=== PATIENT | male | born 1990 | race Caucasian/White ===

== ENCOUNTER 2019-05-09 00:09 | Emergency (ER) | payer BC, SELFPAY ==
[2019-05-09 00:18] VITALS: BP 128/84; PULSE 116; RESP 16; TEMP 37.4; O2SAT 96; BMI 21.9
--- NOTE | 2019-05-09 00:28 | W.ED.SKABFB ---
HPI - Skin/Abscess/Foreign Bdy General: Chief complaint: Fever Stated complaint: L LEG INFECTION Time Seen by Provider: 05/09/19 00:17 Source: patient Mode of arrival: ambulatory Limitations: no limitations History of Present Illness: HPI narrative: Patient is a 29-year-old male who presents to ED today with complaints of an infection to his left foot that he began noticing today. Patient tells me he recently had a blister located to the webbing of his third and fourth toes that was unroofed. Patient states this morning he began noticing some redness, warmth, and tenderness to the dorsum of his foot and streaking up his leg. He reports fevers of 100.1 today. complaint: other (infection L foot) Onset (ago): hour(s) Tetanus up to date: yes Location: L foot Severity: moderate Quality: burning and aching Pain Consistency: constant Relieving factors: other (wearing a sock/shoe) Exacerbating factors: palpation Context: other (ruptured blister ) Associated symptoms: Reports fever(s); Deny chills, nausea or vomiting Treatments prior to arrival: none Review of Systems Const: Reports: fever; Denies: chills, body aches, change in appetite, change in weight, fatigue or malaise Card: Denies: chest pain, palpitations, edema, lightheadedness, syncope or pre-syncope Resp: Denies: shortness of breath GI: Denies: abdominal pain, nausea or vomiting Musc: Reports: extremity pain and redness; Denies: neck pain, back pain, extremity swelling, joint pain or joint swelling Skin/Breast: Reports: new lesion and changes in skin color Neuro: Denies: headache, numbness in extremities, weakness in extremities or changes in sensation PFS ED PFSH: Social History Smoking and tobacco status: current every day smoker Physical Exam Const: COMMON NORMALS: no apparent distress, average body habitus, oriented x3, no limitations, healthy appearing, alert and well nourished Resp: COMMON NORMALS: normal respiratory effort and clear to auscultation bilaterally AUSCULTATION: clear to auscultation bilaterally Cardio: COMMON NORMALS: regular rhythm RATE: tachycardic RHYTHM: regular rhythm Extremity: OTHER: pt has unroofed blister to webbing of 3-4 digits; skin appears hemorrhagic with a blue/purple hue just proximal to this webbing; from this area he has redness/warmth affecting the dorsum of his foot and streaking proximal to about a few inches above his ankle Neuro: COMMON NORMALS: oriented x3 SENSORIUM/ORIENTATION: Yes alert Skin: OTHER: see extremity assessment Course Vital Signs: Vital signs: Vital Signs Temperature 98.4 F 05/09/19 01:21 Pulse Rate 92 05/09/19 02:18 Respiratory Rate 16 05/09/19 02:18 Blood Pressure 109/77 05/09/19 01:21 Pulse Oximetry 96 05/09/19 02:18 MDM - Skin/Abscess/Foreign Bdy Lab Data: Labs: Lab Results 05/09/19 05/09/19 Range/Units 00:36 00:36 WBC 7.0 (4.0-10.0) 10^3/ uL RBC 4.13 (4.1-5.3) 10^6/u L Hgb 12.9 (11.7-16.6) g/dL Hct 39.8 L (42.0-52.0) % MCV 96.4 H (80-94) fL MCH 31.2 (28.0-34.0) pg MCHC 32.4 (30.0-36.0) g/dL RDW 13.4 (12.1-15.1) % Plt Count 150 (130-400) 10^3/c mm MPV 10.2 (7.4-10.4) fL Neut % (Auto) 81.8 % Lymph % (Auto) 9.8 % [place] % (Auto) 7.4 % Eos % (Auto) 0.6 % Baso % (Auto) 0.1 % Neut # (Auto) 5.8 (1.8-7.7) 10^3/u L Lymph # (Auto) 0.7 L (0.8-4.8) 10^3/u L [place] # (Auto) 0.5 (0.2-0.9) 10^3/u L Eos # (Auto) 0.0 (0.0-0.8) 10^3/u L Baso # (Auto) 0.0 (0.0-0.1) 10^3/u L Nucleated RBC % (a uto) 0 % Nucleated RBCs # 0.0 /100WBC Sodium 134 L (136-145) mmol/L Potassium 4.1 (3.5-5.1) mmol/L Chloride 96 L (98-107) mmol/L Carbon Dioxide 24 (22-29) mmol/L Anion Gap 18.1 (5-19) BUN 11 (6-20) mg/dL Creatinine 0.9 (0.7-1.2) mg/dL GFR Calculation 100.5 (90-130) mL/min Glucose 96 (65-115) mg/dL Calcium 10.0 (8.5-10.5) mg/dL Total Bilirubin 0.2 (0.15-1.2) mg/dL AST 14 (0-40) U/L ALT 17 (0-41) U/L Alkaline Phosphata se 63 (40-130) IU/L Total Protein 7.7 (6.6-8.7) g/dL Albumin 4.4 (3.5-5.2) g/dL Globulin 3.3 (1.3-4.6) g/dL Discharge Plan Discharge Patient Disposition: Home, Self-Care Clinical Impression: Acute lymphangitis of extremity Cellulitis Qualifiers: Site of cellulitis: extremity Site of cellulitis of extremity: lower extremity Laterality: left Qualified Code(s): L03.116 - Cellulitis of left lower limb Condition: Stable Prescriptions: New clindamycin HCl 300 mg capsule 300 mg PO Q6H 7 Days Qty: 28 RF: 0 No Action trazodone 50 mg Tablet 50 mg PO BEDTIME RF: 0 Klonopin 0.5 mg Tablet 0.5 mg PO TID PRN (Reason: Anxiety) RF: 0 Tegretol 200 mg Tablet 200 mg PO BEDTIME RF: 0 Discharge Orders: Discharge Order (Routine); Ordered 05/09/19 Ordered By: Brandi Hicks Referrals: Sujata Chapman MD [Primary Care Provider] - Activity Restrictions/Additional Instructions: As discussed you need to return to the emergency department for worsening redness, worsening streaking up your leg, or fevers greater than 100.4 despite antibiotic therapy. Otherwise you may follow-up with primary care this week for reevaluation. Begin antibiotics promptly tomorrow morning. Discharge Date/Time: 05/09/19 02:19 Coding Level of Care Code ED [place] Director for Chg Fwd Exam Expanded Problem Focused
[2019-05-09 00:48] LABS: Basophils % 0.1 %; Eosinophils % 0.6 %; Hematocrit 39.8 % (42.0-52.0); Hemoglobin 12.9 g/dL (11.7-16.6); Lymphocytes # 0.7 10^3/uL (0.8-4.8); Lymphocytes % 9.8 %; Mean Corpuscular HGB Conc 32.4 g/dL (30.0-36.0); Mean Corpuscular Hemoglobin 31.2 pg (28.0-34.0); Mean Corpuscular Volume 96.4 fL (80-94); Mean Platelet Volume 10.2 fL (7.4-10.4); Monocytes # 0.5 10^3/uL (0.2-0.9); Monocytes % 7.4 %; Neutrophils # 5.8 10^3/uL (1.8-7.7); Neutrophils % 81.8 %; Nucleated Red Blood Cells % 0 %; Platelet Count 150 10^3/cmm (130-400); Red Blood Count 4.13 10^6/uL (4.1-5.3); Red Cell Distribution Width 13.4 % (12.1-15.1)
[2019-05-09 01:05] LABS: Alanine Aminotransferase 17 U/L (0-41); Albumin Level 4.4 g/dL (3.5-5.2); Alkaline Phosphatase 63 IU/L (40-130); Anion Gap 18.1 (5-19); Aspartate Amino Transferase 14 U/L (0-40); Blood Urea Nitrogen 11 mg/dL (6-20); Carbon Dioxide 24 mmol/L (22-29); Chloride 96 mmol/L (98-107); Globulin 3.3 g/dL (1.3-4.6); Glomerular Filtration Rate 100.5 mL/min (90-130); Glucose 96 mg/dL (65-115); Potassium 4.1 mmol/L (3.5-5.1); Sodium 134 mmol/L (136-145); Total Bilirubin 0.2 mg/dL (0.15-1.2); Total Protein 7.7 g/dL (6.6-8.7)
[2019-05-09] MEDS: naproxen 500 mg Tablet PO (01:19)
[2019-05-09] MEDS: vancomycin 1,000 MG in sodium chloride 0.9% 250 ML 250 MG IV (01:19)
[2019-05-09 01:21] VITALS: BP 109/77; PULSE 98; RESP 16; TEMP 36.9; O2SAT 96
[2019-05-09] MEDS: HYDROcodone-acetaminophen 5-325 mg Tablet 2 TAB PO (02:00)
[2019-05-09 02:18] VITALS: PULSE 92; RESP 16; O2SAT 96
[2019-05-09 02:31] LABS: C Reactive Protein 23.4 mg/L (0.0-4.9)
== END 2019-05-09 02:19 | disposition home or self-care (01) ==
PROVIDERS: Emergency Provider Physician Assistant; PCP Family Medicine
DX: L03.126 Acute lymphangitis of left lower limb (principal); L03.116 Cellulitis of left lower limb; F17.200 Nicotine dependence, unspecified, uncomplicated
CPT/HCPCS: 36415; 80053; 85025; 86140; 87040; 87070; 87077; 87186; 87205; 96365; 96367; 99283; J3370; J7050

== ENCOUNTER → 2020-05-06 15:31 | Outpatient (BNVA) | payer MEDICARE, SELFPAY | PROVIDERS: PCP Family Medicine; Visit Provider Nurse Practitioner | DX: Z79.899 Other long term (current) drug therapy (principal) | CPT/HCPCS: 85007; 85027 ==

== ENCOUNTER → 2020-07-12 10:55 | Outpatient (BNVA) | payer MEDICARE, SELFPAY | PROVIDERS: PCP Family Medicine; Visit Provider Nurse Practitioner | DX: F31.63 Bipolar disorder, current episode mixed, severe, without psychotic features (principal); F17.210 Nicotine dependence, cigarettes, uncomplicated; Z79.899 Other long term (current) drug therapy | CPT/HCPCS: 80061; 83036; 85007; 85027; 99214 ==

== ENCOUNTER → 2020-10-11 08:54 | Outpatient (BNVA) | payer MEDICARE, SELFPAY | PROVIDERS: PCP Family Medicine; Visit Provider Nurse Practitioner | DX: F31.63 Bipolar disorder, current episode mixed, severe, without psychotic features (principal); F17.210 Nicotine dependence, cigarettes, uncomplicated; Z79.899 Other long term (current) drug therapy | CPT/HCPCS: 85007; 85027; 99214 ==

== ENCOUNTER 2020-11-29 05:48 | Emergency (ER) | payer MEDICARE, SELFPAY ==
[2020-11-29 05:58] VITALS: BP 116/79; PULSE 104; RESP 16; TEMP 36.6; O2SAT 98; BMI 23.0
--- NOTE | 2020-11-29 06:06 | W.ED.SKABFB ---
HPI - Skin/Abscess/Foreign Bdy General: Chief complaint: Skin/Abscess/Foreign Body Stated complaint: sores oozing on lower legs Time Seen by Provider: 11/29/20 05:51 History of Present Illness: HPI narrative: Mr. Amaro is a 30-year-old gentleman with significant past medical history of psychiatric disorder and tobaccoism who presents emerge department due to concern over skin lesions. Reports first noticing a skin lesion on his right anterior chin a few months ago. He is unsure if there was any specific provoking factor though is concerned that it may have been an insect bite. Since that time he has had minor approximately 5 to 10 mm ulceration that has been nonhealing with mild surrounding tenderness and erythema. He subsequently developed an additional lesion on his chest. He decided to seek medical care today because he developed a painful draining lesion which does not have ulceration on his left zabala. He denies fevers chills. He has had mild fatigue, nausea, and generalized malaise. He denies other focal sources of infection. He denies drug use. His symptoms are worse with palpating the lesions and moderate intensity discomfort with this which is aching and painful in nature. He denies similar episodes in the past. No other specific changes in health, exacerbating, or alleviating factors identified. Review of Systems General: Reports: 10 or more systems reviewed and unremarkable except in HPI and below PFSH ED PFSH: Medical History Attention-deficit hyperactivity disorder, predominantly inattentive type Bipolar disorder, current episode mixed, severe, without psychotic features care home current use of clozapine Nicotine dependence, cigarettes, uncomplicated Psychiatric care Social History Smoking and tobacco status: current every day smoker cigarettes Smoking risk assessment/counseling performed?: Yes Tobacco counseling given: counseling >3 minutes Physical Exam Narrative: EXAM NARRATIVE: GENERAL/CONSTITUTIONAL - well-appearing. No acute distress. Eyes - PERRL, no conjunctival injection ENMT - Atraumatic external nose and ears. Moist mucous membranes NECK - supple. trachea midline CARDIOVASCULAR -tachycardic rate and regular rhythm. Peripheral pulses 2+ and equal RESPIRATORY -clear to auscultation bilaterally. No retractions or accessory muscle use. ABDOMEN/GI - Nontender. Nondistended. MSK - Extremities without obvious deformity. SKIN - Warm, Dry. On the chest there is noted to be approximately 5 mm mild ulceration surrounded by erythema, a similar lesion is noted on the right zabala with approximately 5 x 3 cm area of cellulitis. The left zabala has approximately a 6 x 3 cm ovoid area of mild induration and cellulitic appearing changes, no appreciable fluid collection. No rash or vesicles. NEURO - alert and appropriately oriented. Moves all extremities equally. Course ED course: - Patient was seen and evaluated by me at bedside -Vital signs obtained - Initial evaluation notable for no acute distress, nontoxic appearance. Skin lesions as noted above, likely cellulitic though ulcerations are somewhat atypical. - Given tachycardia labs ordered to rule out additional SIRS criteria. labs notable for no leukocytosis, normal lactate. - IV fluids and IV antibiotic given. - Based on patient history, evaluation, labs, and imaging as interpreted the most likely cause of the patient's condition is cellulitis - The results of ED evaluation were given to the patient including prescriptions and/or symptomatic cares (if applicable) including appropriate and responsible use, followup plan, and return precautions. The patient verbalized understanding and felt safe for discharge. - Patient discharged in satisfactory condition. Vital Signs: Vital signs: Vital Signs Temperature 98.9 F 11/29/20 07:47 Pulse Rate 67 11/29/20 07:47 Respiratory Rate 18 11/29/20 07:47 Blood Pressure 116/79 11/29/20 05:58 Pulse Oximetry 96 11/29/20 07:47 MDM - Skin/Abscess/Foreign Bdy Medical Records: Attestation: I reviewed the patient's medical records. Lab Data: Attestation: I reviewed the patient's lab results. Labs: Lab Results 11/29/20 11/29/20 11/29/20 Range/Units 06:28 06:28 06:28 WBC 8.9 (4.0-10.0) 10^3/ uL RBC 4.21 (4.1-5.3) 10^6/u L Hgb 13.6 (11.7-16.6) g/dL Hct 41.2 L (42.0-52.0) % MCV 97.9 H (80-94) fl MCH 32.3 (28.0-34.0) pg MCHC 33.0 (30.0-36.0) g/dL RDW 13.2 (12.1-15.1) % Plt Count 196 (130-400) 10^3/c mm MPV 10.3 (7.4-10.4) fL Neut % (Auto) 62.9 % Lymph % (Auto) 31.2 % [place] % (Auto) 5.2 % Eos % (Auto) 0.1 % Baso % (Auto) 0.3 % Neut # (Auto) 5.61 (1.8-7.7) 10^3/u L Lymph # (Auto) 2.8 (0.8-4.8) 10^3/u L [place] # (Auto) 0.5 (0.2-0.9) 10^3/u L Eos # (Auto) 0.0 (0.0-0.8) 10^3/u L Baso # (Auto) 0.0 (0.0-0.1) 10^3/u L Nucleated RBC % (a uto) 0 % Nucleated RBCs # 0.0 /100WBC Sodium 139 (136-145) mmol/L Potassium 4.2 (3.5-5.1) mmol/L Chloride 101 (98-107) mmol/L Carbon Dioxide 28 (22-29) mmol/L Anion Gap 14.2 (5-19) BUN 13 (6-20) mg/dL Creatinine 0.8 (0.7-1.2) mg/dL GFR Calculation 114.3 (90-130) mL/min Glucose 63 L (65-115) mg/dL Calculated Osmolal ity 286 (285-295) mOsm/k g Lactate 0.9 (0.5-2.2) mmol/L Calcium 9.4 (8.5-10.5) mg/dL Total Bilirubin 0.3 (0.15-1.2) mg/dL AST 21 (0-40) U/L ALT 17 (0-41) U/L Alkaline Phosphata se 70 (40-130) IU/L Total Protein 6.9 (6.6-8.7) g/dL Albumin 4.6 (3.5-5.2) g/dL Globulin 2.3 (1.3-4.6) g/dL Discharge Plan Discharge Patient Disposition: Home Clinical Impression: Cellulitis Condition: Stable Prescriptions: New clindamycin HCl 150 mg capsule 450 mg PO Q8H 7 Days Qty: 63 RF: 0 No Action Klonopin 0.5 mg tablet 0.5 mg PO TID PRN (Reason: Anxiety) Qty: 90 RF: 2 Tegretol 200 mg tablet 200 mg PO BEDTIME Qty: 30 RF: 0 clozapine 50 mg tablet 50 mg PO .HS Qty: 30 RF: 0 Discharge Orders: Discharge ED (Routine); Ordered 11/29/20 Ordered By: Giovani Norman Referrals: Maria T Allen PMHNP [Primary Care Provider] - Discharge Diet: Usual diet Discharge Activity: Resume usual activity Patient Instructions: Cellulitis (ED) Activity Restrictions/Additional Instructions: Thank you for visiting the ED. You were seen and evaluated for skin lesions. Though the ulcerations are somewhat less typical of skin infection the surrounding areas appear infected. You will be given a prescription for antibiotics. Please follow-up with your primary care provider. Please complete the course of antibiotics even if your skin lesions improved. Please return to the emergency department for worsening symptoms, fevers, inability to tolerate oral intake, or anything else that you are concerned about and feel needs emergency department evaluation. 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
[2020-11-29] MEDS: sodium chloride 0.9% 1,000 ML 999 ML IV (06:25)
[2020-11-29 06:36] LABS: Basophils % 0.3 %; Eosinophils % 0.1 %; Hematocrit 41.2 % (42.0-52.0); Hemoglobin 13.6 g/dL (11.7-16.6); Lymphocytes # 2.8 10^3/uL (0.8-4.8); Lymphocytes % 31.2 %; Mean Corpuscular Hemoglobin 32.3 pg (28.0-34.0); Mean Corpuscular Volume 97.9 fl (80-94); Mean Platelet Volume 10.3 fL (7.4-10.4); Monocytes # 0.5 10^3/uL (0.2-0.9); Monocytes % 5.2 %; Neutrophils # 5.61 10^3/uL (1.8-7.7); Neutrophils % 62.9 %; Nucleated Red Blood Cells % 0 %; Platelet Count 196 10^3/cmm (130-400); Red Blood Count 4.21 10^6/uL (4.1-5.3); Red Cell Distribution Width 13.2 % (12.1-15.1); White Blood Count 8.9 10^3/uL (4.0-10.0)
[2020-11-29 06:58] LABS: Lactate (Lactic Acid level) 0.9 mmol/L (0.5-2.2)
[2020-11-29 06:59] LABS: Alanine Aminotransferase 17 U/L (0-41); Albumin Level 4.6 g/dL (3.5-5.2); Alkaline Phosphatase 70 IU/L (40-130); Anion Gap 14.2 (5-19); Aspartate Amino Transferase 21 U/L (0-40); Blood Urea Nitrogen 13 mg/dL (6-20); Calcium 9.4 mg/dL (8.5-10.5); Carbon Dioxide 28 mmol/L (22-29); Chloride 101 mmol/L (98-107); Globulin 2.3 g/dL (1.3-4.6); Glomerular Filtration Rate 114.3 mL/min (90-130); Glucose 63 mg/dL (65-115); Osmolality Calculated 286 mOsm/kg (285-295); Potassium 4.2 mmol/L (3.5-5.1); Sodium 139 mmol/L (136-145); Total Bilirubin 0.3 mg/dL (0.15-1.2); Total Protein 6.9 g/dL (6.6-8.7)
[2020-11-29] MEDS: clindamycin 600 MG/50 ML PREMIX 100 MG IV (07:00)
[2020-11-29 07:47] VITALS: PULSE 67; RESP 18; TEMP 37.2; O2SAT 96
== END 2020-11-29 07:51 | disposition home or self-care (01) ==
PROVIDERS: Emergency Provider Emergency Medicine; PCP Nurse Practitioner
DX: L03.116 Cellulitis of left lower limb (principal); L03.115 Cellulitis of right lower limb; F17.210 Nicotine dependence, cigarettes, uncomplicated
CPT/HCPCS: 80053; 83605; 85025; 96365; 99283; J3490; J7030

== ENCOUNTER 2020-11-30 10:51 | Inpatient (IN) | payer MEDICARE, SELFPAY ==
[2020-11-30 11:16] VITALS: BP 146/99; PULSE 96; RESP 18; TEMP 36.7; O2SAT 98; BMI 24.2
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
[2020-11-30] MEDS: LORazepam 2 mg/mL INJ 1 mL 1 MG IM (11:57)
[2020-11-30] MEDS: ziprasidone 20 mg/mL SDV 10 MG IM (11:58)
[2020-11-30 12:00] VITALS: BP 122/73; PULSE 74; RESP 16; O2SAT 99
[2020-11-30 12:54] LABS: Basophils % 0.3 %; Eosinophils % 0.2 %; Hematocrit 39.8 % (42.0-52.0); Hemoglobin 13.4 g/dL (11.7-16.6); Lymphocytes # 1.2 10^3/uL (0.8-4.8); Lymphocytes % 18.4 %; Mean Corpuscular HGB Conc 33.7 g/dL (30.0-36.0); Mean Corpuscular Hemoglobin 32.7 pg (28.0-34.0); Mean Corpuscular Volume 97.1 fl (80-94); Mean Platelet Volume 10.3 fL (7.4-10.4); Monocytes # 0.4 10^3/uL (0.2-0.9); Monocytes % 5.9 %; Neutrophils # 4.99 10^3/uL (1.8-7.7); Nucleated Red Blood Cells % 0 %; Platelet Count 176 10^3/cmm (130-400); Red Cell Distribution Width 13.1 % (12.1-15.1); White Blood Count 6.6 10^3/uL (4.0-10.0)
[2020-11-30 13:09] LABS: Alanine Aminotransferase 17 U/L (0-41); Albumin Level 4.5 g/dL (3.5-5.2); Alkaline Phosphatase 75 IU/L (40-130); Anion Gap 13.9 (5-19); Aspartate Amino Transferase 22 U/L (0-40); Blood Urea Nitrogen 11 mg/dL (6-20); Calcium 9.2 mg/dL (8.5-10.5); Carbamazepine Tegretol 5.5 ug/mL (4.0-12.0); Carbon Dioxide 24 mmol/L (22-29); Chloride 102 mmol/L (98-107); Glomerular Filtration Rate 133.3 mL/min (90-130); Glucose 100 mg/dL (65-115); Osmolality Calculated 281 mOsm/kg (285-295); Potassium 3.9 mmol/L (3.5-5.1); Sodium 136 mmol/L (136-145); Total Bilirubin 0.3 mg/dL (0.15-1.2); Total Protein 6.5 g/dL (6.6-8.7)
[2020-11-30 13:31] LABS: Acetaminophen < 5.0 ug/mL (10-30); Alcohol Level < 10 mg/dL (0-10); Salicylate < 0.3 mg/dL (3-10)
[2020-11-30 13:43] LABS: Amphetamines Screen Urine Positive (Negative); Barbiturates Screen Urine Negative (Negative); Benzodiazepines Screen Urine Negative (Negative); Cocaine Screen Urine Negative (Negative); Opiate Screen Urine Positive (Negative); PCP Screen Urine Negative (Negative); THC Screen Urine Negative (Negative)
--- NOTE | 2020-11-30 14:44 | PC.NURSE ---
patient continues resting well. VS trending. RR even and nonlabored.
[2020-11-30 15:29] VITALS: BP 110/66; PULSE 68; RESP 17; O2SAT 99
[2020-11-30 18:00] VITALS: BP 127/89; PULSE 73; RESP 18; O2SAT 100
--- NOTE | 2020-11-30 19:23 | ECG_ITS ---
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 Measurements Intervals [place] Rate: 69 P: 83 MN: 166 QRS: 12 QRSD: 109 T: 61 QT: 379 QTc: 408 Interpretive Statements SINUS RHYTHM WITH SINUS ARRHYTHMIA Compared to ECG 08/29/2017 13:07:52 No significant changes Electronically Signed On 12-01-2020 18:01:51 CDT by Sandra Shen M.D. [id number] f
[2020-11-30 19:29] LABS: Add Urine Microscopic? NO; Charge for UA Resulting for Rev
[2020-11-30 20:01] LABS: Bilirubin Urine Neg (Negative); Blood Urine Neg (Negative); Glucose Urine UA Norm (Normal); Ketones Urine Negative (Negative); Leukocyte Esterase Urine Negative (Negative); Nitrate Urine Negative (Negative); Protein Urine Neg (Negative); Specific Gravity, Urine 1.005 (1.005-1.030); Sulfosalicylic Acid Urine Negative (Negative); Urine Appearance Clear (CLEAR); Urine Color Yellow (Yellow); Urobilinogen Urine Norm (Negative); pH Urine 8 (5-7)
[2020-11-30 20:16] LABS: SARS Covid-2 Antigen Negative (Negative)
[2020-11-30] MEDS: nicotine 21 mg Patch 1 PATCH TRANSDERMA (21:05)
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
[2020-11-30] MEDS: CLONazepam 0.5 mg Tablet PO (21:30)
[2020-11-30] MEDS: ziprasidone 20 mg/mL SDV IM (23:53)
[2020-12-01] MEDS: ibuprofen 200 mg Tablet 400 MG PO (00:17)
[2020-12-01] MEDS: clindamycin 150 mg Capsule 450 MG PO (00:17)
--- NOTE | 2020-12-01 06:47 | XRR_ITS ---
PROCEDURE INFORMATION: Exam: XR Left Foot Exam date and time: 12/01/2020 6:47 AM Age: 30 years old Clinical indication: Pain; Foot; Left; Additional info: Foot pain, midfoot 1st and 2nd metatarsal region TECHNIQUE: Imaging protocol: XR Left foot. Views: 1 or 2 views. COMPARISON: No relevant prior studies available. FINDINGS: Bones/joints: Normal. Soft tissues: Normal. XR/XR foot LT 2V [id number] IMPRESSION: No acute findings.
[2020-12-01] MEDS: acetaminophen 325 mg Tablet 650 MG PO ×2 (06:57→21:03)
[2020-12-01] MEDS: CLONazepam 1 mg Tablet 0.5 MG PO (07:04)
[2020-12-01 07:23] VITALS: BP 126/82; PULSE 69; RESP 18; TEMP 36.4; O2SAT 100
[2020-12-01] MEDS: cloZAPine 25 mg Tablet 50 MG PO ×2 (14:41→21:03)
[2020-12-01 15:15] VITALS: BP 114/75; PULSE 122; RESP 18; TEMP 36.8; O2SAT 97
[2020-12-01 15:25] VITALS: BP 114/75; PULSE 122; RESP 17; TEMP 36.8; O2SAT 97
[2020-12-01 15:45] VITALS: BP 114/75; PULSE 122; RESP 17; TEMP 36.8; O2SAT 97
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
[2020-12-01] MEDS: nicotine 2 mg Gum BUCCAL ×2 (20:14→22:10)
[2020-12-01 21:12] VITALS: BP 96/60; PULSE 108; RESP 15; TEMP 37.3; O2SAT 100
[2020-12-01] MEDS: hyDROXYzine 25 mg Capsule 50 MG PO (22:12)
[2020-12-01] MEDS: trazodone 50 mg Tablet PO (22:13)
--- NOTE | 2020-12-01 22:15 | PC.NURSE ---
pt requested something to help me sleep. i can't get my brain to shut down. usually my clozapine puts me right to sleep. i don't know why it's not working. trazodone 50mg po for sleep and vistaril 50mg po for anxiety given.
--- NOTE | 2020-12-02 00:36 | PC.NURSE ---
pt resting quietly at this time with both eyes closed.
[2020-12-02 06:00] VITALS: BP 95/60; PULSE 96; RESP 18; TEMP 36.8; O2SAT 100
[2020-12-02] MEDS: cloZAPine 25 mg Tablet 50 MG PO ×2 (08:18→19:38)
[2020-12-02] MEDS: nicotine 2 mg Gum BUCCAL ×5 (08:32→19:40)
--- NOTE | 2020-12-02 10:43 | P.HP_ITS ---
Providers/Chief Complaint Admitting Physician: Joshua Rutledge MD Primary Care Provider: [facility] T [facility] Chief Complaint: HI HPI NPU History of Present Illness Yeison Amaro is a 30 year old male who presented to the emergency department with the following report: Chief Complaint: Psychiatric Symptoms Stated Complaint: HI Time Seen by Provider: 11/30/20 10:52 Source: patient and family (father) Mode of arrival: ambulatory Limitations: no limitations History of Present Illness: HPI Narrative: Patient is a 30-year-old male who presents to ED today stating that his father brought him here for evaluation of skin lesions. Patient states he may have been bitten by spiders approximately a month ago. He thinks they may have become secondarily infected with staph. Patient tells me he has had received antibiotics for these but they have not seem to help. Father (outside of the room) tells me a different story of why he brought his son. He states over the past several days he has become increasingly paranoid. He has a history of schizoaffective disorder. Affidavit filled out by the father states that patient believes his brother is trying to kill him and that he needs to kill his brother in order to be safe. He also believes last night that his brother was pumping CO2 through the HVAC system. He states this morning he locked himself in his father in the bathroom and took everything out from underneath the sink and crawled under it to hide. Patient has been making statements about manufacturing a bomb. He has made several statements of not wanting to live anymore. Onset (ago): day(s) History of same: Yes Associated symptoms: Deny auditory hallucinations, visual hallucinations, depression, homicidal ideation or suicidal ideation Treatments prior to arrival: none and other (father filing out affidavit ). He was admitted to the neuropsychiatric unit for definitive treatment of those issues. He presents today having been in the emergency department for almost a day and a half of 1 on 2 days and we tried about 30 referrals without any luck. We attempt to send him to another facility is related to this facility being understaffed and his father being a primary nurse overnight on the unit. He presents today reporting that he has been not taking his medication as prescribed and also has in fact been using drugs. He reports that this behavior started after his mother went on a vacation and he was unable stay at her house and he had to go to his father's house to stay he reports. He reports that they are he is confronted by the stressors of his brother and his brothers mental health challenges which can be frightening to him. Additionally his brother is a bad influence and his addiction which he reports has been mostly well managed and has now gotten out of sorts again. We discussed his Clozaril and how the do se is so low. He reports that they have tried him on higher doses but it just makes him too tired. We did review his medications and he reports that they are in fact effective when he takes them. We discussed the risk-benefit alternatives of possibly making changes in medication and he understood and agreed proceed as documented in his note. His current desire is to maintain his current medications but be adherent with them. An excerpt of his last known hospitalization here in 2017 is included below for context. He denies any substantive changes since that time. He reports he lives with his mother primarily and is able to manage himself well in that environment. He does endorse an ongoing history with opiates and some other drugs. His UDS was positive for amphetamines as well as opiates and for that reason we discussed the likely impact of methamphetamine on psychosis and the paranoia that he is experiencing at least that reported by his father. Per his 08/11/2017 [facility] inpatient psychiatric evaluation: Date of Service: August 11, 2017 Chief Complaint: Agitation, soledad HPI: Mr. Amaro is a 27 yo male who was brought to [facility] ED after an agitated dispute in the parking lot outside the [facility] neurology clinic. His father is a nurse in the neurology clinic where the pt was apparently exhibiting increased agitated behavior, paranoia, and combativeness. He was brought into the emergency room where physical/restraints were required. A 96 hour hold was filed. The patient was noted to be exhibiting significant manic behavior. Patient had a recent history of insomnia for several days, hyper mood, racing thoughts, pressured speech, distractibility. Alcohol and drug screens were negative. Since admission, the patient has been confused and wandering, disorganized. He received additional B-52 this morning for severe agitation and later this afternoon began exhibiting dystonia of the tongue with significant dysarthria and full-body tremors. This provider arrived for interview and was notified that nursing staff had just given him 1 mg of Cogentin approximately 15 minutes prior for EPS. Patient was noted to have ongoing symptoms and 50 mg Benadryl IM stat was ordered. Within another 15 minutes, the patient was able to converse better but somewhat drowsy and dozing off during interview. He appears to have some intellectual disability versus gross disorganization. He does endorse that he came to the hospital because he was agitated. He is difficult to follow during interview and an unreliable historian. He reports that he see ex- girlfriend dressed up and wanted to take her back home with him. He initially reports that she had a baby and he was wanting to abduct the child from her but then later reported that she is currently and it is his baby. Initially reports that he has been sleeping and eating well but later reports that he was up for days. He has been irritable at times, anxious, agitated. He denies any auditory hallucinations. He reports that he has been seeing things other people haven't but cannot describe this. He has been somewhat paranoid. When asked about depression, he does report that he has been having suicidal thoughts with a plan to shoot himself in the head and does have access to 2 guns. He states my anxiety is bad when I use to much speed. Otherwise unable to obtain any additional psychiatric review of systems. Past Medical History Past Medical History: PAST PSYCHIATRIC HISTORY: Unable to obtain due to current mental status. Extensive [employer] history indicates he has had a couple of Klonopin 2 mg prescriptions in February 2017. There is an allergy to Cymbalta listed. Per records: Previous diagnosis of depression versus bipolar disorder, ADHD, and a history of opioid/cannabis abuse. -most recent outpatient mental health care at [facility]. Last progress note from May 2016 reviewed during which time the patient was on Remeron and Vyvanse and requesting a narcotic sedative prescription when he was not provided. He did not follow-up thereafter. Patient has a prior overnight admission in May 2017 for paranoia and manic behavior and the context of acute cannabis abuse. PAST FAMILY PSYCHIATRIC HISTORY: -Unable to obtain currently due to patient's mental status. SOCIAL HISTORY: Patient is single and reports living either with his mother or father at times. He does endorse using methamphetamines but denies alcohol use. Otherwise unable to obtain currently due to patient's mental status. 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 Otherwise unable to obtain due to patient's current mental status. When asked about any history of seizures, he reports that he has had a history of seizures while I was in [place]. Review of Systems Constitutional: Denies fever Eyes: Blindness right eye ENT/Mouth: Denies hearing loss Cardiovascular: Denies chest pain Respiratory: Denies shortness of breath GI: Denies vomiting/abdominal pain Neuro: Complains of: Dystonia Musculoskeletal: Complains of: Myalgias Skin: Denies lesions Hematologic/Lymphatic: No abnormal bleeding Endocrine: Denies cold intolerance : Denies dysuria Psych: Complains of: Anxiety, Other (insomnia), suicidal ideation, depression, memory problems, psychosis, anger problems Otherwise denies 12 point review systems Allergies: Coded Allergies: CODEINE (Verified Allergy, Unknown, 08/10/17) DULOXETINE (Verified Allergy, Unknown, 08/10/17) TRAMADOL (Verified Allergy, Unknown, 08/10/17) Meds NPU Home Medications Medication Instructions Recorded Confirmed Last Taken Type clonazepam 0.5 mg tablet 0.5 mg PO TID PRN #90 tab 11/06/20 11/30/20 Unknown Rx carbamazepine 200 mg tablet 200 mg PO BEDTIME #30 tab 11/20/20 11/30/20 11/29/20 Rx clindamycin HCl 450 mg PO Q8H 7 Days #63 cap 11/29/20 11/30/20 11/30/20 Rx clozapine 50 mg PO BEDTIME 11/30/20 11/30/20 11/29/20 History trazodone 50 mg PO DAILY PRN 11/30/20 11/30/20 Unknown History Allergies Allergy/AdvReac Type Severity Reaction Status Date / Time chlorpromazine Allergy Unknown Verified 11/29/20 06:05 [From Thorazine] codeine Allergy Unknown Verified 11/29/20 06:05 haloperidol [From Haldol] Allergy Unknown Verified 11/29/20 06:05 quetiapine [From Seroquel] Allergy Unknown Verified 11/29/20 06:05 PFSH NPU PFSH: Medical History Attention-deficit hyperactivity disorder, predominantly inattentive type Bipolar disorder, current episode mixed, severe, without psychotic features 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 Right eye has a whiteness noted where his eye should be and he has a prosthetic but he is not currently wearing. No abnormal movements except for psychomotor retardation. Mostly cooperative with exam in mild distress. Speech was decreased rate and volume. Mood described as better than I got here, affect slightly subdued. Thought process organized. Thought content: Patient denied suicidal or homicidal ideation, he reported some paranoia and he did appear guarded and with some persecutory and paranoid delusions, he denied auditory or visual hallucinations but did report having some prior to admission. Attention and concentration appeared intact and memory was mostly reliable but never formally tested. He is alert and oriented x3. Insight and judgment appear fair impulse control is limited. Vitals/I&O/Wt Last Vital Signs Temp 98.2 F 12/02/20 06:00 Pulse 96 12/02/20 06:00 Resp 18 12/02/20 06:00 BP 95/60 12/02/20 06:00 Pulse Ox 100 12/02/20 06:00 Data NPU : 11/30/20 12:40 11/30/20 12:40 A&P Assessment and plan (1) Cellulitis: Status: Acute (2) Schizoaffective disorder: Status: Acute Qualifiers: Schizoaffective disorder type: unspecified Qualified Code(s): F25.9 - Schizoaffective disorder, unspecified (3) Paranoia: Status: Acute (4) FDC current use of clozapine: Status: Acute (5) Nicotine dependence, cigarettes, uncomplicated: Status: Acute (6) Methamphetamine addiction: Status: Acute (7) Opiate addiction: Status: Acute Additional A&P Information This 70-year-old white male with a long history of mental health and addiction issues who presents with active addiction with a positive UDS who presented to the emergency department with active psychosis not taking medication as prescribed but open to resuming medication. 1. Continue current medication. 2. Continue every 15 minute checks for safety. 3. Encourage individual, group and milieu therapies. 4. Encourage sober living treatment after discharge at the highest level of care to which he is willing to commit. Involuntary Hold Information 96 Hour Hold: 96 Hour Involuntary Admission: Yes 96 Hour Hold Ending Date: 12/06/20 96 Hour Hold Ending Time: 12:01 Attestations NPU Medical Necessity Statement*: Inpatient hospitalization is medically necessary and the clinically appropriate intervention at this time. We will monitor medications and make changes as indicated. Patient will be in the hospital for over two midnights. Likely length of stay 3 to 5 days. 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
[2020-12-02] MEDS: acetaminophen 325 mg Tablet 650 MG PO ×2 (11:49→18:57)
[2020-12-02 14:00] VITALS: BP 114/69; PULSE 91; RESP 17; TEMP 36.8; O2SAT 99
--- NOTE | 2020-12-02 14:29 | PC.RESP ---
SMOKING CESSATION INFORMATION SENT TO PATIENT.
[2020-12-02] MEDS: hyDROXYzine 25 mg Capsule 50 MG PO ×3 (14:35→19:38)
--- NOTE | 2020-12-02 14:35 | PC.NURSE ---
PRN VISTARIL 50 MG GIVEN PO PER PT C/O STATED ANXIETY
[2020-12-02] MEDS: trazodone 50 mg Tablet PO (19:38)
[2020-12-02 20:54] VITALS: BP 106/66; PULSE 127; RESP 18; TEMP 36.7; O2SAT 97
[2020-12-03 06:00] VITALS: BP 116/71; PULSE 102; RESP 17; TEMP 36.3; O2SAT 100
[2020-12-03] MEDS: nicotine 2 mg Gum BUCCAL ×5 (06:04→19:10)
[2020-12-03] MEDS: ibuprofen 600 mg Tablet PO ×2 (06:04→19:09)
[2020-12-03] MEDS: cloZAPine 25 mg Tablet 50 MG PO ×2 (09:24→19:39)
[2020-12-03] MEDS: acetaminophen 325 mg Tablet 650 MG PO ×2 (09:24→15:48)
--- NOTE | 2020-12-03 12:34 | NPU.GN ---
[facility] Topic:Coping Skills General Mood of Group:Refused group.
[2020-12-03 14:00] VITALS: BP 117/81; PULSE 110; RESP 20; TEMP 36; O2SAT 100
--- NOTE | 2020-12-03 17:58 | PM.NPN ---
Subjective NPU Subjective: Interval history: Patient presents today reporting that he is feeling generally better and back thinking like himself he feels. Treatment team connected with his father and he is supportive of him returning home and appropriate with appropriate resources and treatment as indicated. We discussed the plan for discharge tomorrow and he felt confident that he would be able to go home now he is back on his medication and conduct himself in a way that will portend success moving forward. Mental Status Exam MSE Comments: This is a well-nourished well-developed white male in hospital scrubs with limited grooming and eye contact. Right eye has a whiteness noted where his eye should be and he has a prosthetic but he is not currently wearing. No abnormal movements except for psychomotor retardation. Mostly cooperative with exam in mild distress. Speech was decreased rate and volume. Mood described as better than I got here, affect slightly subdued. Thought process organized. Thought content: Patient denied suicidal or homicidal ideation, he reported some paranoia and he did appear guarded and with some persecutory and paranoid delusions, he denied auditory or visual hallucinations but did report having some prior to admission. Attention and concentration appeared intact and memory was mostly reliable but never formally tested. He is alert and oriented x3. Insight and judgment appear fair impulse control is limited. 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 1. Continue current medication. 2. Continue every 15 minute checks for safety. 3. Encourage individual, group and milieu therapies. 4. Encourage sober living treatment after discharge at the highest level of care to which he is willing to commit. Involuntary Hold Information 96 Hour Hold: 96 Hour Involuntary Admission: Yes 96 Hour Hold Ending Date: 12/06/20 96 Hour Hold Ending Time: 12:01 Attestations NPU Medical Necessity Statement*: Inpatient hospitalization is medically necessary and the clinically appropriate intervention at this time. We will monitor medications and make changes as indicated. Likely length of stay 1-3 days. 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
[2020-12-03] MEDS: hyDROXYzine 25 mg Capsule 50 MG PO (18:01)
--- NOTE | 2020-12-03 18:02 | PC.NURSE ---
PRN VISTARIL 50 MG GIVEN PO PER PT C/O STATED ANXIETY
[2020-12-03 20:06] VITALS: BP 120/74; PULSE 95; RESP 15; TEMP 37.1; O2SAT 98
[2020-12-04] MEDS: ibuprofen 600 mg Tablet PO (03:41)
[2020-12-04 06:00] VITALS: BP 113/76; PULSE 72; RESP 18; TEMP 36.6; O2SAT 100
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
[2020-12-04] MEDS: nicotine 2 mg Gum BUCCAL ×2 (07:47→09:34)
--- NOTE | 2020-12-04 08:41 | PC.SOCIAL ---
IMM Update Discussed medicare rights with patient. Verbalized understanding. Provided patient with a copy and placed a initialed, timed, dated copy in chart.
[2020-12-04 08:48] VITALS: BP 113/76; PULSE 72; RESP 18; TEMP 36.6; O2SAT 100
[2020-12-04] MEDS: cloZAPine 25 mg Tablet 50 MG PO (09:34)
== END 2020-12-04 09:57 | disposition home or self-care (01) | DRG 885 ==
LOC: ER 12-01 06:00 → NP 12-01 14:54
PROVIDERS: Emergency Medicine; Physician Assistant; Admitting Provider Psychiatry & Neurology Psychiatry; Emergency Provider Emergency Medicine; PCP Nurse Practitioner; Visit Provider Psychiatry & Neurology Psychiatry
DX: F25.0 Schizoaffective disorder, bipolar type (principal); L03.116 Cellulitis of left lower limb; F90.0 Attention-deficit hyperactivity disorder, predominantly inattentive type; Z79.899 Other long term (current) drug therapy; R45.850 Homicidal ideations; F17.210 Nicotine dependence, cigarettes, uncomplicated; F15.90 Other stimulant use, unspecified, uncomplicated; F11.90 Opioid use, unspecified, uncomplicated; M25.572 Pain in left ankle and joints of left foot
CPT/HCPCS: 73620; 80053; 80156; 80306; 80307; 81003; 83605; 85025; 87426; 93005; 96365; 96372; 97165; 99283; 99285; J2060; J3486; J3490; J7030

== ENCOUNTER → 2021-02-25 13:57 | Outpatient (BNVA) | payer MEDICARE, SELFPAY | PROVIDERS: PCP Nurse Practitioner; Visit Provider Nurse Practitioner | DX: Z79.899 Other long term (current) drug therapy (principal) | CPT/HCPCS: 80053; 85025 ==

== ENCOUNTER 2021-02-26 07:35 | Emergency (ER) | payer MEDICARE, SELFPAY ==
[2021-02-26 07:41] VITALS: BP 147/119; PULSE 97; RESP 18; TEMP 36.8; O2SAT 95; BMI 25.0
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
[2021-02-26 08:04] VITALS: BP 147/119; PULSE 97; RESP 18; O2SAT 95
[2021-02-26] MEDS: diphenhydrAMINE 50 mg/mL SDV 1mL IM (08:04)
== END 2021-02-26 09:12 | disposition home or self-care (01) ==
PROVIDERS: Emergency Provider Physician Assistant; PCP Nurse Practitioner
DX: T78.40XA Allergy, unspecified, initial encounter (principal); F17.210 Nicotine dependence, cigarettes, uncomplicated
CPT/HCPCS: 96372; 99214; 99283; J1200; J2930

== ENCOUNTER → 2021-04-21 11:01 | Outpatient (BNVA) | payer MEDICARE, SELFPAY | PROVIDERS: PCP Nurse Practitioner; Visit Provider Nurse Practitioner | DX: F31.63 Bipolar disorder, current episode mixed, severe, without psychotic features (principal); F17.210 Nicotine dependence, cigarettes, uncomplicated; F15.20 Other stimulant dependence, uncomplicated; Z79.899 Other long term (current) drug therapy | CPT/HCPCS: 85007; 85027; 99214 ==

== ENCOUNTER 2021-06-25 20:04 | Inpatient (IN) | payer MEDICARE, MEDICAID, SELFPAY ==
[2021-06-25 20:16] VITALS: BP 167/104; PULSE 92; RESP 18; TEMP 37.3; O2SAT 100; BMI 23.5
--- NOTE | 2021-06-25 20:57 | XRR_ITS ---
PROCEDURE INFORMATION: Exam: XR Right Tibia and Fibula Exam date and time: 06/25/2021 9:04 PM Age: 31 years old Clinical indication: Pain; Lower leg; Right TECHNIQUE: Imaging protocol: XR Right tibia and fibula. Views: 2 views. COMPARISON: No relevant prior studies available. FINDINGS: Bones/joints: There is no acute fracture or dislocation. If symptoms persist, follow-up imaging in several days may be useful to exclude an occult fracture. No other significant acute bone or joint abnormality. Soft tissues: No significant acute finding. XR/XR tibia fibula RT 2V [id number] IMPRESSION: No acute fracture or dislocation.
--- NOTE | 2021-06-25 20:57 | XRR_ITS ---
PROCEDURE INFORMATION: Exam: XR Right Foot Exam date and time: 06/25/2021 9:04 PM Age: 31 years old Clinical indication: Pain; Foot; Right; Additional info: Foot pain TECHNIQUE: Imaging protocol: XR Right foot. Views: 1 or 2 views. COMPARISON: No relevant prior studies available. FINDINGS: Bones/joints: There is no acute fracture or dislocation. If symptoms persist, follow-up imaging in several days may be useful to exclude an occult fracture. No other significant acute bone or joint abnormality. Soft tissues: No significant acute finding. XR/XR foot RT 2V 00882 IMPRESSION: No acute fracture or dislocation.
--- NOTE | 2021-06-25 20:57 | XRR_ITS ---
PROCEDURE INFORMATION: Exam: XR Right Ankle Exam date and time: 06/25/2021 9:04 PM Age: 31 years old Clinical indication: Pain; Ankle; Right; Additional info: Ankle pain TECHNIQUE: Imaging protocol: XR Right ankle. Views: 1 or 2 views. COMPARISON: No relevant prior studies available. FINDINGS: Bones/joints: There is no acute fracture or dislocation. If symptoms persist, follow-up imaging in several days may be useful to exclude an occult fracture. No other significant acute bone or joint abnormality. Soft tissues: No significant acute finding. XR/XR ankle RT 2V 08669 IMPRESSION: No acute fracture or dislocation.
--- NOTE | 2021-06-25 20:57 | USR_ITS ---
PROCEDURE INFORMATION: Exam: US Duplex Right Lower Extremity Veins, Limited Exam date and time: 06/25/2021 10:32 PM Age: 31 years old Clinical indication: Swelling (edema) of limb and varicose veins of lower extremities; Lower extremity, right; Additional info: Evalu for dvt, also look for dp/pt TECHNIQUE: Imaging protocol: Real-time Duplex ultrasound of the Right Lower Extremity with 2-D kirk scale, color Doppler flow and spectral waveform analysis with image documentation. Limited exam was focused on the right lower extremity veins. COMPARISON: CR (LOW EXM, ) 06/25/2021 9:04 PM FINDINGS: Evaluated veins include the the right common femoral, proximal profunda femoral, proximal/mid/distal superficial femoral, popliteal, posterior tibial, peroneal, and proximal greater saphenous veins. No visible clot in the included veins. The included veins appear normally compressible. Duplex Doppler evaluation demonstrates flow in the evaluated veins. US/[place] [id number] IMPRESSION: No evidence of acute right lower extremity DVT.
--- NOTE | 2021-06-25 21:03 | ED_ITS ---
Documented by User: Brnady Joyner MD 06/25/21 22:18 HPI - General Adult General: Chief complaint: Psychiatric Symptoms Stated complaint: SI\PTSD\Rt Knee Pain Time Seen by Provider: 06/25/21 20:46 History of Present Illness: HPI: [31]yo patient w/ hx of depression BIBA for suicidal ideation and self harm. Patient reports that he has burned his arms in the last few weeks and attempt to self-harm. It is, patient reports right leg pain is new x 1 week. On arrival, the patient is AAOx3 and cooperative with my evaluation. No focal complaints of chest pain, shortness of breath, palpitations, N/V, focal GI/ complaints. Currently denies HI. No complaints of hallucinations. Onset: acute Duration: ongoing Location: home Severity: severe Associated symptoms: Deny chest pain, dyspnea, nausea, rash, palpitations or vomiting Review of Systems Const: Denies: fever(s) or chills Eyes: Denies: change in vision ENMT: Denies: mouth pain Card: Denies: chest pain or palpitations Resp: Denies: dyspnea or non-productive cough GI: Denies: abdominal pain, nausea, vomiting or diarrhea : Denies: dysuria Musc: Reports: extremity pain (+R leg pain) Skin/Breast: Denies: rash or new lesions Neuro: Denies: weakness in extremities Psych: Reports: depression and suicidal ideation [place]/Lymph: Denies: easy bruising [facility] ED PFSH: Medical History Attention-deficit hyperactivity disorder, predominantly inattentive type Bipolar disorder, current episode mixed, severe, without psychotic features [facility] current use of clozapine Nicotine dependence, cigarettes, uncomplicated On combination antipsychotic drug therapy Opioid dependence, uncomplicated Other stimulant dependence, uncomplicated Psychiatric care Social History Smoking and tobacco status: current every day smoker cigarettes Packs smoked per day: 0.25 Years cigarettes smoked: 10 Quit status (tobacco): not considering quitting Second hand smoke exposure: Yes Smoking risk assessment/counseling performed?: Yes Tobacco counseling given: counseling >3 minutes Physical Exam Const: COMMON NORMALS: alert HENMT: COMMON NORMALS: atraumatic HEAD & SCALP: atraumatic MOUTH: moist mucous membranes not abnormal Eye: COMMON NORMALS: EOMs intact bilaterally and conjunctivae normal CONJUNCTIVA: Yes conjunctivae normal Neck/C-Spine: COMMON NORMALS: full ROM and supple Resp: COMMON NORMALS: normal respiratory effort and clear to auscultation bilaterally AUSCULTATION: clear to auscultation bilaterally Cardio: COMMON NORMALS: regular rate RATE: regular rate GI: COMMON NORMALS: Soft to palpation and non-tender PALPATION: Yes Soft to palpation Extremity: COMMON NORMALS: full ROM OTHER: + Sensations intact in the right lower extremity, cap refill less than 3 seconds, 2+ DP/PT pulses on the affected side, strength intact in the right lower extremity Neuro: SENSORIUM/ORIENTATION: Yes alert MOTOR EXAM: No Abnormal motor strength present and Other motor observations present (no focal motor deficits) Psych: COMMON NORMALS: speech normal SPEECH: Yes normal speech MOOD & AFFECT: Yes depressed mood Course Vital Signs: Vital signs: Vital Signs Temperature 98.9 F 06/26/21 02:00 Pulse Rate 87 06/26/21 02:00 Respiratory Rate 18 06/26/21 02:00 Blood Pressure 127/69 06/26/21 02:00 Pulse Oximetry 100 06/26/21 02:00 MDM - General Adult Medical Decision Making [31]yo patient w/ hx of depression presenting for SI and self harm. HDS, exam within normal limit Thoughts are linear and organized, and the patient has no AH/VH, or HI. Clinically the patient displays no overt toxidrome; they are well appearing, with low suspicion for toxic ingestion given history and exam. Symptoms unlikely 2/2 anemia, hypothyroidism, infection, or ICH. Workup: CBC, CMP, Lipase, salicylate/tylenol, UDS, XR of the RLE and US of the RLE X-rays of the right lower extremity did not show any signs of trauma or injuries. Ultrasound not show any signs of DVT. DP/PT pulses visualized in the right lower extremity. Lab findings: wnl [10:15pm] On reassessment, labs and workup wnl. Patient is hemodynamically stable with no acute medical complaints. Case discussed with psychiatric provider Dr. Mckenzie at [facility] psych inpatient with recommendation for transfer to outside facility since patient has family members who work in NPU. Disposition: Transfer Lab Data : 06/25/21 21:16 06/25/21 21:16 Radiology Impressions Ankle X-Ray 06/25/21 20:57 IMPRESSION: No acute fracture or dislocation. Foot X-Ray 06/25/21 20:57 IMPRESSION: No acute fracture or dislocation. Tibia/Fibula X-Ray 06/25/21 20:57 IMPRESSION: No acute fracture or dislocation. Venous Duplex 06/25/21 20:57 IMPRESSION: No evidence of acute right lower extremity DVT. Imaging Data Other Imaging: Radiologist's impression: [place] [address] XRay Report Signed Patient: Yeison Amaro Unit #: [id number] : 1990 Age/Sex: 31 / M ADM Date: 06/25/21 Loc: ER Room/Bed: Attending Dr: Ordering Provider/Ordering MD: Brandy Joyner MD Date of Service: 06/25/21 Procedure(s): XR tibia fibula RT 2V 44775 Accession Number(s): [id number] Report Number: [id number] PROCEDURE INFORMATION: Exam: XR Right Tibia and Fibula Exam date and time: 06/25/2021 9:04 PM Age: 31 years old Clinical indication: Pain; Lower leg; Right TECHNIQUE: Imaging protocol: XR Right tibia and fibula. Views: 2 views. COMPARISON: No relevant prior studies available. FINDINGS: Bones/joints: There is no acute fracture or dislocation. If symptoms persist, follow-up imaging in several days may be useful to exclude an occult fracture. ?No other significant acute bone or joint abnormality. Soft tissues: No significant acute finding.? XR/XR tibia fibula RT 2V 22677 IMPRESSION: No acute fracture or dislocation. ? Dictated By: Jean Carlos De La O MD Signed By: Jean Carlos De La O MD Signed Date/Time: 06/25/216 DD/ [address] [address] XRay Report Signed Patient: Yeison Amaro Unit #: [id number] : 1990 Age/Sex: 31 / M ADM Date: 06/25/21 Loc: ER Room/Bed: Attending Dr: Ordering Provider/Ordering MD: Brandy Joyner MD Date of Service: 06/25/21 Procedure(s): XR foot RT 2V 45376 Accession Number(s): [id number] Report Number: [id number] PROCEDURE INFORMATION: Exam: XR Right Foot Exam date and time: 06/25/2021 9:04 PM Age: 31 years old Clinical indication: Pain; Foot; Right; Additional info: Foot pain TECHNIQUE: Imaging protocol: XR Right foot. Views: 1 or 2 views. COMPARISON: No relevant prior studies available. FINDINGS: Bones/joints: There is no acute fracture or dislocation. If symptoms persist, follow-up imaging in several days may be useful to exclude an occult fracture. ?No other significant acute bone or joint abnormality. Soft tissues: No significant acute finding. XR/XR foot RT 2V 94371 IMPRESSION: No acute fracture or dislocation. ? Dictated By: Jean Carlos De La O MD Signed By: Jean Carlos De La O MD Signed Date/Time: 06/25/212216 DD/ [address] [address] XRay Report Signed Patient: Yeison Amaro Unit #: [id number] : 1990 Age/Sex: 31 / M ADM Date: 06/25/21 Loc: ER Room/Bed: Attending Dr: Ordering Provider/Ordering MD: Brandy Joyner MD Date of Service: 06/25/21 Procedure(s): XR ankle RT 2V 83344 Accession Number(s): [id number] Report Number: [id number] PROCEDURE INFORMATION: Exam: XR Right Ankle Exam date and time: 06/25/2021 9:04 PM Age: 31 years old Clinical indication: Pain; Ankle; Right; Additional info: Ankle pain TECHNIQUE: Imaging protocol: XR Right ankle. Views: 1 or 2 views. COMPARISON: No relevant prior studies available. FINDINGS: Bones/joints: There is no acute fracture or dislocation. If symptoms persist, follow-up imaging in several days may be useful to exclude an occult fracture. ?No other significant acute bone or joint abnormality. Soft tissues: No significant acute finding.? XR/XR ankle RT 2V 94710 IMPRESSION: No acute fracture or dislocation. ? Dictated By: Jean Carlos De La O MD Signed By: Jean Carlos De La O MD Signed Date/Time: 06/25/212216 DD/ [address] [address] XRay Report Signed Patient: Yeison Amaro Unit #: [id number] : 1990 Age/Sex: 30 / M ADM Date: 11/30/20 Loc: ER Room/Bed: Attending Dr: Ordering Provider/Ordering MD: Giovani Norman MD Date of Service: 12/01/20 Procedure(s): XR foot LT 2V 78285 Accession Number(s): [id number] Report Number: [id number] PROCEDURE INFORMATION: Exam: XR Left Foot Exam date and time: 12/01/2020 6:47 AM Age: 30 years old Clinical indication: Pain; Foot; Left; Additional info: Foot pain, midfoot 1st and 2nd metatarsal region TECHNIQUE: Imaging protocol: XR Left foot. Views: 1 or 2 views. COMPARISON: No relevant prior studies available. FINDINGS: Bones/joints: Normal. Soft tissues: Normal. XR/XR foot LT 2V 05192 IMPRESSION: No acute findings. ? Dictated By: Cem Serrano Signed By: Cem Serrano Signed Date/Time: 12/01/20818 DD/ 6 Discharge Plan Discharge Patient Disposition: Admitted As Inpatient Admit Provider: Phillip Mckenzie Clinical Impression: Depression, Leg pain, Acute psychosis Condition: Stable Sign Out Sign Out Data: Patient Sign Out occurred on 06/25/21 at 22:58. Patient's care was discussed, a nd care was transferred from to Giovani Norman MD. Post-Handoff Eval: Patient care handoff received from Dr. Joyner pending completion of ED evaluation and searching for accepting outside facility. Laboratory studies were reviewed. Based on ED evaluation to this point there is no obvious condition that would preclude the patient from inpatient management of psychiatric concerns. Due to the fact that patient has family member who works on Neuropsych Unit in conversation with psychiatry service patient should be transferred to outside facility. We will attempt to look for accepting facility. The patient did become agitated and required medication for his safety and the safety of others with good therapeutic benefit. Plan to continue to watch closely. Further dis cussion occurred between our staff and Dr. Mckenzie. Apparently the patient's family member is off work starting at 7 AM and will not be returning for a few days and therefore Dr. Mckenzie is comfortable with the patient being admitted to our Neuropsych Unit. Giovani Norman MD Emergency Medicine Coding Level of Care Code ED Promotional Representative for Chg Fwd Exam Comprehensive
[2021-06-25 21:20] LABS: Basophils # 0.1 10^3/uL (0.0-0.1); Basophils % 0.4 %; Eosinophils % 0.3 %; Hematocrit 42.9 % (42.0-52.0); Lymphocytes # 2.2 10^3/uL (0.8-4.8); Lymphocytes % 18.8 %; Mean Corpuscular HGB Conc 32.6 g/dL (30.0-36.0); Mean Corpuscular Volume 97.9 fl (80-94); Mean Platelet Volume 10.3 fL (7.4-10.4); Monocytes # 0.7 10^3/uL (0.2-0.9); Monocytes % 6.3 %; Neutrophils # 8.46 10^3/uL (1.8-7.7); Neutrophils % 73.9 %; Nucleated Red Blood Cells % 0 %; Platelet Count 229 10^3/cmm (130-400); Red Blood Count 4.38 10^6/uL (4.1-5.3); Red Cell Distribution Width 14.1 % (12.1-15.1); White Blood Count 11.5 10^3/uL (4.0-10.0)
--- NOTE | 2021-06-25 21:35 | ECG_ITS ---
[facility] Test Date: 2021-06-25 Pat Name: Yeison Amaro Department: Room: Gender: Male Vice President: : 1990 Requested By: Brandy Joyner Order Number: [id number] Farnsworth MD: Sandra Shen M.D. Measurements Intervals [place] Rate: 82 P: -20 [place]: 157 QRS: 50 QRSD: 102 T: -15 QT: 341 QTc: 399 Interpretive Statements SINUS RHYTHM WITH SINUS ARRHYTHMIA PROBABLE INFERIOR MYOCARDIAL INFARCTION , OF INDETERMINATE AGE [35 ms Q WAVE IN II/aVF] Compared to ECG 11/30/2020 19:24:22 Myocardial infarct finding now present Electronically Signed On 06-25-2021 23:30:11 CDT by Sandra Shen M.D. [id number]
[2021-06-25 21:47] LABS: Amphetamines Screen Urine Negative (Negative); Barbiturates Screen Urine Negative (Negative); Benzodiazepines Screen Urine Negative (Negative); Cocaine Screen Urine Negative (Negative); Opiate Screen Urine Negative (Negative); PCP Screen Urine Negative (Negative); THC Screen Urine Negative (Negative)
[2021-06-25 21:57] LABS: Alanine Aminotransferase 26 U/L (0-41); Albumin Level 4.4 g/dL (3.5-5.2); Alkaline Phosphatase 97 IU/L (40-130); Aspartate Amino Transferase 25 U/L (0-40); Blood Urea Nitrogen 19 mg/dL (6-20); Carbon Dioxide 24 mmol/L (22-29); Chloride 100 mmol/L (98-107); Globulin 3.2 g/dL (1.3-4.6); Glomerular Filtration Rate 113.5 mL/min (90-130); Glucose 97 mg/dL (65-115); Lipase 23 U/L (13-60); Osmolality Calculated 286 mOsm/kg (285-295); Sodium 137 mmol/L (136-145); Thyroid Stimulating Hormone 0.89 uIU/mL (0.27-4.20); Total Bilirubin 0.2 mg/dL (0.15-1.2); Total Protein 7.6 g/dL (6.6-8.7)
[2021-06-25 21:59] LABS: Acetaminophen < 5.0 ug/mL (10-30); Salicylate < 0.3 mg/dL (3-10)
[2021-06-25 22:00] LABS: Anion Gap 17.4 (5-19); Potassium 4.4 mmol/L (3.5-5.1)
[2021-06-25 22:27] LABS: Free T4 Free Thyroxine 0.95 ng/dL (0.82-1.77)
[2021-06-25] MEDS: LORazepam 2 mg/mL INJ 1 mL IM (23:25)
[2021-06-25 23:52] LABS: Adenovirus Not Detected (NOT DETECT); Chlamydia Pneumoniae Not Detected (NOT DETECT); Coronavirus 229E,HKU1,NL63,OC4 Not Detected (NOT DETECT); Human Metapneumovirus Not Detected (NOT DETECT); Human Rhinovirus/Enterovirus Not Detected (NOT DETECT); Influenza A Not Detected (NOT DETECT); Influenza A H1 Not Detected (NOT DETECT); Influenza A H1-2009 Not Detected (NOT DETECT); Influenza A H3 Not Detected (NOT DETECT); Influenza B Not Detected (NOT DETECT); Mycoplasma Pneumoniae Not Detected (NOT DETECT); Parainfluenza Virus Type 1 Not Detected (NOT DETECT); Parainfluenza Virus Type 2 Not Detected (NOT DETECT); Parainfluenza Virus Type 3 Not Detected (NOT DETECT); Parainfluenza Virus Type 4 Not Detected (NOT DETECT); Respiratory Syncytial Virus A Not Detected (NOT DETECT); Respiratory Syncytial Virus B Not Detected (NOT DETECT); SARS-COV-2 Not Detected (NOT DETECT)
[2021-06-25] MEDS: OLANZapine 10 mg VIAL 5 MG IM (23:56)
[2021-06-26] VITALS (7 sets, daily range): BP systolic 127–156; BP diastolic 69–87; PULSE 70–115; RESP 16–18; TEMP 36.5–37.2; O2SAT 94–100
[2021-06-26] MEDS: hyDROXYzine 25 mg Capsule 50 MG PO ×2 (09:53→20:24)
[2021-06-26] MEDS: nicotine 2 mg Gum BUCCAL ×5 (09:56→20:24)
--- NOTE | 2021-06-26 12:07 | PC.NURSE ---
Addendum entered by Wilma Hannon RN 06/26/21 14:36: UDS was negative in ER Original Note: Admission Assessment [31]yo patient w/ hx of depression BIBA for suicidal ideation and self harm. Patient reports that he has burned his arms in the last few weeks and attempt to self-harm. It is, patient reports right leg pain is new x 1 week. On arrival, the patient is AAOx3 and cooperative with my evaluation. No focal complaints of chest pain, shortness of breath, palpitations, N/V, focal GI/ complaints. Currently denies HI. No complaints of hallucinations. NPU Admission Admitted to NPU at 0906 via wheelchair and ER staff. To room for assessment. VSS. Denies pain. States he is here because, I felt out of place where I was and wanted to come in and get checked out. Denies SI/HI upon admission. Does report AVH. Presents with multiple self inflicted barrett to bilateral arms and right shoulder. Asked about violent tendencies and states, I try not to do violence. Has had psychiatric admissions in the past, once being here he states. Unable to remember how many,. Is very fidgety upon assessment and animated. Reports anxiety. Informed I would check and get anxiety medications to him once admission was completed and meds were put in computer. Reports he does struggle with opoid dependency and last alcohol intake was 2 days ago. Was very vague on substance abuse assessment. Answering, it was a long time ago or I don't like that drug. Request flu shot and 2nd covid vaccination. Orientated to unit. All questions answered and support voiced.
[2021-06-26] MEDS: OLANZapine 5 mg ODT PO ×2 (13:24→15:28)
[2021-06-26] MEDS: cloZAPine 25 mg Tablet 50 MG PO ×2 (13:44→20:25)
[2021-06-26] MEDS: carBAMazepine 200 mg Tablet 100 MG PO (13:45)
--- NOTE | 2021-06-26 13:53 | PC.SOCIAL ---
Patient attended and participated in group.
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
--- NOTE | 2021-06-26 14:21 | PC.NURSE ---
PRN Medication C/O of anxiety during admission. Vistaril 50 mg given as ordered at 0955. reassessed at 1030 and voices relief.
--- NOTE | 2021-06-26 14:22 | PC.NURSE ---
PRN Medication Up to nurses station and request something for anxiety. Zydis 5 mg given as ordered. Reassessed at 1430 and voices relief.
[2021-06-26] MEDS: LORazepam 2 mg Tablet PO (15:19)
[2021-06-26] MEDS: diphenhydrAMINE 50 mg Capsule PO (15:19)
[2021-06-26] MEDS: cetylpyridinium Lozenge 1 EACH MUCOUS MEM (16:41)
--- NOTE | 2021-06-26 16:54 | PC.NURSE ---
Pt had an outburst of screaming and yelling throwing a fit wanting nicotine gum, staff administered gum pt replied thanks SOPHIA . Pt didn't calm down soon, pt wrote on the bhatia with a crayon, staff redirected pt to please draw on the windows in the dayroom for [facility] clean-up.
--- NOTE | 2021-06-26 16:57 | PC.NURSE ---
Pt was escalating and being intrusive with other pt's not respecting personal boundaries, pacing in the hallways, agitated and cussing. Pt agreed to take an oral B52...5mg Zyprexa, 2mg Ativan, 50mg Benadryl.
--- NOTE | 2021-06-26 17:13 | PC.NURSE ---
Behavior Continues to be very intrusive with staff and peers. States, My mind is just scattered and I can't think. I think I need to stay here 21 days. Informed patient that's up to the doctor.
--- NOTE | 2021-06-26 17:31 | PC.NURSE ---
AT APPROX 1505 PT BEGAN ESCALATING, DEMANDING NICOTINE GUM, YELLING WHEN STAFF NEEDED TO CHECK TIMES OF LAST DOSES. YELLING LOUDLY, REPEATING NICOTINE GUM NOW. STAFF ABLE TO GET GUM FOR PT AND PT DID CALM SLIGHTLY. PT THEN BEGAN WRITING ON SHIELDS IN HALLWAY. WHEN STAFF APPROACHED PT WAS VERY TENSE BUT DID AGREE TO STOP DRAWING ON WALL AT THAT TIME. PT REMAINED LABILE. GAVE ORDER FOR PRN MEDICATIONS. PT WAS AGREEABLE TO TAKE PRN BENADRYL, ZYPREXA AND ATIVAN PO. PT HAS REMAINED INTRUSIVE TOWARDS OTHER PTS AND HAS REMAINED TENSE BUT HAS REMAINED IN CONTROL OF BEHAVIORS SINCE.
[2021-06-26] MEDS: buprenorphine-naloxone 4-1 mg Film 2 EACH SUBLINGUAL (18:01)
[2021-06-26] MEDS: acetaminophen 325 mg Tablet 650 MG PO (20:24)
[2021-06-26] MEDS: chlorPROMazine 50 mg Tablet 100 MG PO (20:24)
[2021-06-26] MEDS: carBAMazepine 200 mg Tablet PO (20:25)
[2021-06-26] MEDS: trazodone 50 mg Tablet PO (21:26)
--- NOTE | 2021-06-26 21:43 | PC.NURSE ---
PRN medication Patient complained of bilateral foot pain rated as a 2/10. Tylenol given, assessed later and pt reported 0/10. Patient requested medication for anxiety and nicotine gum. Gum and Hydroxyzine given. Patient came to nurses station requesting medication to help him sleep. Trazadone was given. Snack was also given at that time.
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
[2021-06-27 06:00] VITALS: RESP 18
[2021-06-27] MEDS: nicotine 2 mg Gum BUCCAL ×8 (06:40→18:44)
[2021-06-27] MEDS: buprenorphine-naloxone 4-1 mg Film 2 EACH SUBLINGUAL ×2 (08:07→18:13)
[2021-06-27] MEDS: carBAMazepine 200 mg Tablet 100 MG PO (08:08)
--- NOTE | 2021-06-27 08:41 | PC.NURSE ---
Assessment note Patient is up to nurses station, he is intrusive with pressured rapid speech. He has rapid pressured speech. He is alert and oriented in all aspects. Hr is regular in rhythm. Pedal pulses palpated x 2, no edema noted. Bowel sounds active in all quads. Co/ some burning with urination. Denies any other pain. Skin is warm and dry.
[2021-06-27] MEDS: cloZAPine 25 mg Tablet 50 MG PO ×2 (09:09→20:16)
[2021-06-27] MEDS: hyDROXYzine 25 mg Capsule 50 MG PO (11:22)
--- NOTE | 2021-06-27 11:22 | PC.NURSE ---
Addendum entered by Melissa Betts RN 06/27/21 12:56: Prn note Vistaril not effective. Patient continues to pace and run up and down halls. He has pressured rambling speech. Ativan 2mg po given as ordered for anxiety. Original Note: Prn note Patient c/o racing heart, noted to continue to pace halls. Vistaril given for anxiety.
--- NOTE | 2021-06-27 11:29 | P.NPUPN_ITS ---
Subjective NPU Subjective: He continues to be hyper and manic. He slept at least 5 hours on the floor last night. He thinks that he got 8 or 9 hours of sleep last night. He feels like the Thorazine is working well for for his sleep. 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 He was told that we will try and break his manic episode with some Thorazine and then plan for discharge. I informed the social work services that he wanted to go to a senior living or something but that will take some time to arrange. He understood that. Mental Status Exam MSE Comments: This is a 31-year-old appropriate weight male who appears approximately his stated age and is in no acute distress. He is pleasant and cooperative with the evaluation. He is fairly well groomed. He has multiple barrett on his arms evidently from cigarettes. psychomotor activity is mildly increased. Speech is at a regular rate and rhythm, normal volume, good articulation, not pressured. No clang associations Alert, oriented X3 Attention and concentration appears to be normal. Memory is intact Mood is mildly depressed. Affect is mildly dysphoric. Thought process is logical and goal-directed. Thought content: Denies auditory and visual hallucinations. No delusions or paranoia are noted. No current suicidal ideation, and no homicidal ideation. Fund of knowledge is average. Insight and judgment appear to be fair. Impulse control is fair. Cognition: Patient Appearance: Appropriate Level of Consciousness: Drowsy Patient Cognition Impaired: No Ability to Follow Directions: Good Patient Orientation (long list): Person, Place and Time Comprehension Ability: Mild Impairment Hallucination Type: None Delusion Description: Not Present Thought Process: Disorganized and Tangential Affect: Affect Description: Anxious and Elated Depressive Symptoms: Increased Anxiety Behavior: Patient Behavior: Cooperative, Impulsive and Intrusive Speech Pattern: Appropriate and Clear Vitals/I&O/Wt Last Vital Signs Temp 97.9 F 06/26/21 20:27 Pulse 115 H 06/26/21 20:27 Resp 18 06/27/21 06:00 BP 156/87 06/26/21 20:27 Pulse Ox 94 06/26/21 20:27 Weight last 48 hrs Weight 68.039 kg Data NPU : 06/25/21 21:16 06/25/21 21:16 A&P Assessment and plan (1) Bipolar disorder, current episode mixed, severe, without psychotic features: Status: Acute (2) Nicotine dependence, cigarettes, uncomplicated: Status: Acute (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 Continue current medication. Try Thorazine to help him sleep and increase Tegretol to 300 mg daily. Buprenorphine was restarted at his request. 2. Continue every 15 minute checks for safety. 3. Encourage individual, group and milieu therapies. 4. Encourage sober living treatment after discharge at the highest level of care to which he is willing to commit. 5. We will monitor for safety for himself in the community prior to discharge. Involuntary Hold Information 96 Hour Hold: 96 Hour Involuntary Admission: Yes 96 Hour Hold Ending Date: 07/01/21 96 Hour Hold Ending Time: 21:01 Attestations NPU Medical Necessity Statement*: Inpatient hospitalization is medically necessary and the clinically appropriate intervention at this time. We will initiate medications and make changes as indicated. 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
[2021-06-27] MEDS: LORazepam 2 mg Tablet PO (12:55)
[2021-06-27 13:44] VITALS: BP 123/81; PULSE 102; RESP 17; TEMP 36.7; O2SAT 97
--- NOTE | 2021-06-27 13:44 | PC.NURSE ---
Prn note Ativan not effective. Patient continues to pace and is very restless. He is unable to follow directions. He continues to have pressured rapid speech. he remains a flight risk.
[2021-06-27] MEDS: OLANZapine 5 mg ODT PO ×2 (15:58→22:58)
--- NOTE | 2021-06-27 16:02 | PC.NURSE ---
pt up to nurses station states i need something for the anxiety right here and points to chest. prn zydis given
--- NOTE | 2021-06-27 16:59 | PC.SOCIAL ---
Patient did not attend group.
[2021-06-27] MEDS: carBAMazepine 200 mg Tablet PO (20:16)
[2021-06-27] MEDS: chlorPROMazine 50 mg Tablet 100 MG PO (20:16)
[2021-06-27 20:24] VITALS: BP 141/87; PULSE 116; RESP 18; O2SAT 100
[2021-06-27] MEDS: diphenhydrAMINE 50 mg/mL SDV 1mL IM (23:29)
[2021-06-27] MEDS: LORazepam 2 mg/mL INJ 1 mL IM (23:29)
--- NOTE | 2021-06-27 23:30 | PC.NURSE ---
He received ativan 2 mg IM and benadryl 50 mg IM for aggressive and threatening behavior. He was accusing staff of not giving him food. He was in the process of eating a granola bar. He started demanding to go to the other unit. He was banging on the doors. He was face to face with me. He was threatening to kill me. I asked for him to step back and quit threatening me. He raised his hands at this point. I had to side step to get away from him. He was calmer after injections.
[2021-06-28 06:00] VITALS: BP 120/72; PULSE 92; RESP 18; O2SAT 100
[2021-06-28] MEDS: docusate sodium 100 mg Capsule PO (08:21)
[2021-06-28] MEDS: carBAMazepine 200 mg Tablet 100 MG PO (08:22)
[2021-06-28] MEDS: cloZAPine 25 mg Tablet 50 MG PO ×2 (08:23→20:56)
[2021-06-28] MEDS: buprenorphine-naloxone 4-1 mg Film 2 EACH SUBLINGUAL ×2 (08:24→17:41)
--- NOTE | 2021-06-28 11:28 | P.NPUPN_ITS ---
Subjective NPU Subjective: He required a B-52 injection at about midnight last night. He said that the Thorazine did not help him sleep. He agreed to take some Ativan and wanted to take it IM. He said that I need my cells back . I came up behind him as he was walking back toward his room with his blanket around his head. I said his name and he asked me if I had seen his soul. I asked what it would look like. He made a shape with his finger and thumb that was about a quarter in diameter. He said it would have been in nicotine patch envelope. I asked him if it would be on the floor or flying around that he went off on a tangent and did not answer the question. He said that he liked that idea of some Ativan to help him sleep. He understands it is not for routine use otherwise. Mental Status Exam MSE Comments: This is a 31-year-old appropriate weight male who appears approximately his stated age and is in no acute distress. He is pleasant and cooperative with the evaluation. He is fairly well groomed. He has multiple barrett on his arms evidently from cigarettes. psychomotor activity is increased. Speech is at a regular rate and rhythm, normal volume, good articulation, mildly pressured. No clang associations Alert, oriented X3 Attention and concentration appears to be normal. Memory is intact Mood is mildly depressed. Affect is mildly dysphoric. Thought process is logical and goal-directed. Thought content: Denies auditory and visual hallucinations. Seems more delusional. No current suicidal ideation, and no homicidal ideation. Fund of knowledge is average. Insight and judgment appear to be fair. Impulse control is fair. Cognition: Patient Appearance: Appropriate Level of Consciousness: Drowsy Patient Cognition Impaired: No Ability to Follow Directions: Good Patient Orientation (long list): Person, Place and Time Comprehension Ability: Mild Impairment Hallucination Type: None Delusion Description: Not Present Thought Process: Flight of Ideas Affect: Affect Description: Elated Depressive Symptoms: Increased Anxiety Behavior: Patient Behavior: Cooperative and Impulsive Speech Pattern: Appropriate and Clear Vitals/I&O/Wt Last Vital Signs Temp 98.0 F 06/27/21 13:44 Pulse 92 06/28/21 06:00 Resp 18 06/28/21 06:00 BP 120/72 06/28/21 06:00 Pulse Ox 100 06/28/21 06:00 Data NPU : 06/25/21 21:16 06/25/21 21:16 A&P Assessment and plan (1) Bipolar disorder, current episode mixed, severe, without psychotic features: Status: Acute (2) Nicotine dependence, cigarettes, uncomplicated: Status: Acute (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 Continue current medication. Try Thorazine to help him sleep and increase Tegretol to 300 mg daily. Buprenorphine was restarted at his request. Add ATivan 2 mg IM and Benedryl for sleep. 2. Continue every 15 minute checks for safety. 3. Encourage individual, group and milieu therapies. 4. Encourage sober living treatment after discharge at the highest level of care to which he is willing to commit. 5. We will monitor for safety for himself in the community prior to discharge. Involuntary Hold Information 96 Hour Hold: 96 Hour Involuntary Admission: Yes 96 Hour Hold Ending Date: 07/01/21 96 Hour Hold Ending Time: 21:01 Attestations NPU Medical Necessity Statement*: Inpatient hospitalization is medically necessary and the clinically appropriate intervention at this time. We will initiate medications and make changes as indicated. 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
[2021-06-28 14:00] VITALS: BP 142/89; PULSE 103; RESP 18; TEMP 36.6; O2SAT 99
[2021-06-28] MEDS: nicotine 2 mg Gum BUCCAL ×3 (14:10→20:19)
[2021-06-28] MEDS: LORazepam 2 mg Tablet PO (17:40)
[2021-06-28] MEDS: diphenhydrAMINE 50 mg Capsule PO ×2 (17:40→20:18)
[2021-06-28] MEDS: OLANZapine 5 mg ODT PO (17:40)
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
[2021-06-28] MEDS: carBAMazepine 200 mg Tablet PO (20:18)
[2021-06-28] MEDS: chlorPROMazine 50 mg Tablet 100 MG PO (20:18)
[2021-06-28] MEDS: LORazepam 2 mg/mL INJ 1 mL IM (20:19)
[2021-06-28 20:20] VITALS: BP 135/87; PULSE 103; RESP 16; TEMP 36.8; O2SAT 98
[2021-06-29] MEDS: LORazepam 2 mg Tablet PO (01:25)
--- NOTE | 2021-06-29 02:03 | PC.NURSE ---
0125 Patient is at the nurses station sleepy but awake. He says someone came into his room and said it was time to wake up so he woke up. Now he ia hyper again and agitated. Ativan 2 mg po given for anxiety/agitation. Patient is now resting in his bed quietly.
[2021-06-29] MEDS: OLANZapine 5 mg ODT PO (03:41)
--- NOTE | 2021-06-29 03:41 | PC.NURSE ---
He is wanting something for his anxiety. He was given zydis.
[2021-06-29] MEDS: nicotine 2 mg Gum BUCCAL ×8 (03:43→22:44)
--- NOTE | 2021-06-29 04:26 | PC.NURSE ---
0250 Patient is awake and very ramped up already. Patient received Zyprexa 5 mg po for anxiety/agitation. The med was effective as the patient is resting quietly.
[2021-06-29 06:00] VITALS: RESP 16
[2021-06-29] MEDS: carBAMazepine 200 mg Tablet 100 MG PO (08:21)
[2021-06-29] MEDS: cloZAPine 25 mg Tablet 50 MG PO ×2 (08:22→22:44)
[2021-06-29] MEDS: buprenorphine-naloxone 4-1 mg Film 2 EACH SUBLINGUAL ×2 (08:22→17:18)
--- NOTE | 2021-06-29 11:29 | W.PM.NPUPNS ---
Subjective NPU Subjective: He required 6 mg of Ativan to sleep last night. He got a B-52 injection around dinnertime. He got the 2 mg IM at bedtime and then needed another 2 mg in the asparagus buncher hours. He did get a lot of sleep with that. He says that he is somewhat groggy today from it. He seems more calm but that could be residual sedation. He was quite delusional yesterday. He was also agitated easily. He thought that another patient had cloned him and became him for a short period of time. He was unhappy that this other patient did not like to be him. Mental Status Exam MSE Comments: This is a 31-year-old appropriate weight male who appears approximately his stated age and is in no acute distress. He is pleasant and cooperative with the evaluation. He is fairly well groomed. He has multiple barrett on his arms evidently from cigarettes. psychomotor activity is increased. Speech is at a regular rate and rhythm, normal volume, good articulation, mildly pressured. No clang associations Alert, oriented X3 Attention and concentration appears to be normal. Memory is intact Mood is mildly depressed. Affect is mildly dysphoric. Thought process is logical and goal-directed. Thought content: Denies auditory and visual hallucinations. He had many delusions yesterday. I did not detect any today but I am certain that they are present. No current suicidal ideation, and no homicidal ideation. Fund of knowledge is average. Insight and judgment appear to be poor. Impulse control is poor. Cognition: Patient Appearance: Appropriate Level of Consciousness: Drowsy Patient Cognition Impaired: No Ability to Follow Directions: Good Patient Orientation (long list): Person, Place, Name, Age and Birthday Comprehension Ability: Mild Impairment Hallucination Type: None Delusion Description: Not Present Thought Process: Flight of Ideas Affect: Affect Description: Appropriate and Calm Depressive Symptoms: Increased Anxiety Behavior: Patient Behavior: Cooperative Speech Pattern: Appropriate and Clear Vitals/I&O/Wt Last Vital Signs Temp 98.3 F 06/28/21 20:20 Pulse 103 H 06/28/21 20:20 Resp 16 06/29/21 06:00 BP 135/87 06/28/21 20:20 Pulse Ox 98 06/28/21 20:20 Data NPU : 06/25/21 21:16 06/25/21 21:16 A&P Assessment and plan (1) Bipolar disorder, current episode mixed, severe, without psychotic features: Status: Acute (2) Nicotine dependence, cigarettes, uncomplicated: Status: Acute (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 Continue current medication. Try Thorazine to help him sleep and increase Tegretol to 300 mg daily. Buprenorphine was restarted at his request. Add Ativan 4 mg po and Benedryl for sleep. 2. Continue every 15 minute checks for safety. 3. Encourage individual, group and milieu therapies. 4. Encourage sober living treatment after discharge at the highest level of care to which he is willing to commit. 5. We will monitor for safety for himself in the community prior to discharge. Involuntary Hold Information 96 Hour Hold: 96 Hour Involuntary Admission: Yes 96 Hour Hold Ending Date: 07/01/21 96 Hour Hold Ending Time: 21:01 Attestations NPU Medical Necessity Statement*: Inpatient hospitalization is medically necessary and the clinically appropriate intervention at this time. We will initiate medications and make changes as indicated. 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
[2021-06-29 14:00] VITALS: BP 133/86; PULSE 122; RESP 20; TEMP 36.8; O2SAT 95
[2021-06-29] MEDS: diphenhydrAMINE 50 mg Capsule PO (20:32)
[2021-06-29] MEDS: chlorPROMazine 50 mg Tablet 100 MG PO (20:32)
[2021-06-29] MEDS: carBAMazepine 200 mg Tablet PO (20:32)
[2021-06-29] MEDS: LORazepam 2 mg/mL INJ 1 mL 4 MG PO (20:33)
[2021-06-29 22:00] VITALS: BP 148/93; PULSE 97; RESP 18; TEMP 36.8; O2SAT 99
--- NOTE | 2021-06-29 23:44 | PC.NURSE ---
while evening medications were being given, this pt came up to the desk with one of the other pts when it was their time to get meds. said other pt was questioning and refusing their medications and this pt repeatedly encouraged said other pt NOT to take the meds if they weren't sure about them and they had not seen the Doctor yet and that some of said other pts medications put him in a coma so said other pt shouldn't take that anyway. this pt was advised not to interfere with another pts treatment, due to him not being a Doctor and each persons treatment is unique to them. that medications work differently on other pts than they do on him. pt ignored advisement and talked said other pt into not taking their own scheduled medication.
[2021-06-30] MEDS: nicotine 2 mg Gum BUCCAL ×7 (04:28→18:48)
[2021-06-30] MEDS: acetaminophen 325 mg Tablet 650 MG PO (05:16)
[2021-06-30 06:00] VITALS: BP 128/94; PULSE 107; RESP 19; TEMP 36.9; O2SAT 98
[2021-06-30] MEDS: carBAMazepine 200 mg Tablet 100 MG PO (08:31)
[2021-06-30] MEDS: cloZAPine 25 mg Tablet 50 MG PO ×2 (08:31→20:31)
[2021-06-30] MEDS: buprenorphine-naloxone 4-1 mg Film 2 EACH SUBLINGUAL ×2 (08:32→17:25)
--- NOTE | 2021-06-30 08:49 | P.NPUPN_ITS ---
Subjective NPU Subjective: He said that he is feeling better. He slept fairly well with the Ativan 4 mg at bedtime last night. He did not need any as needed medications since his Zyprexa Zydis about 4 AM yesterday morning. He did not mention any delusional material today. Mental Status Exam MSE Comments: This is a 31-year-old appropriate weight male who appears approximately his stated age and is in no acute distress. He is pleasant and cooperative with the evaluation. He is fairly well groomed. He has multiple barrett on his arms evidently from cigarettes. psychomotor activity is increased. Speech is at a regular rate and rhythm, normal volume, good articulation, mildly pressured. No clang associations Alert, oriented X3 Attention and concentration appears to be normal. Memory is intact Mood is good. Affect is euthymic. Thought process is logical and goal-directed. Thought content: Denies auditory and visual hallucinations. He had many delusions yesterday. I did not detect any today but I am certain that they are present. No current suicidal ideation, and no homicidal ideation. Fund of knowledge is average. Insight and judgment appear to be poor. Impulse control is poor. Cognition: Patient Appearance: Appropriate Level of Consciousness: Drowsy Patient Cognition Impaired: No Ability to Follow Directions: Good Patient Orientation (long list): Person, Place, Name, Age, Birthday, Day of Week, Month and Year Comprehension Ability: Mild Impairment Hallucination Type: None Delusion Description: Not Present Thought Process: Circumstantial Affect: Affect Description: Appropriate and Calm Depressive Symptoms: Increased Anxiety Behavior: Patient Behavior: Appropriate, Cooperative and Impulsive Speech Pattern: Appropriate and Clear Vitals/I&O/Wt Last Vital Signs Temp 98.4 F 06/30/21 06:00 Pulse 107 H 06/30/21 06:00 Resp 19 H 06/30/21 06:00 BP 128/94 06/30/21 06:00 Pulse Ox 98 06/30/21 06:00 Data NPU : 06/25/21 21:16 06/25/21 21:16 A&P Assessment and plan (1) Bipolar disorder, current episode mixed, severe, without psychotic features: Status: Acute (2) Nicotine dependence, cigarettes, uncomplicated: Status: Acute (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 Continue current medication. Try Thorazine to help him sleep and increase Tegretol to 300 mg daily. Buprenorphine was restarted at his request. Add Ativan 4 mg po and Benedryl for sleep. 2. Continue every 15 minute checks for safety. 3. Encourage individual, group and milieu therapies. 4. Encourage sober living treatment after discharge at the highest level of care to which he is willing to commit. 5. We will monitor for safety for himself in the community prior to discharge. Involuntary Hold Information 96 Hour Hold: 96 Hour Involuntary Admission: Yes 96 Hour Hold Ending Date: 07/01/21 96 Hour Hold Ending Time: 21:01 Attestations NPU Medical Necessity Statement*: Inpatient hospitalization is medically necessary and the clinically appropriate intervention at this time. We will initiate medications and make changes as indicated. 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
[2021-06-30] MEDS: OLANZapine 5 mg ODT PO (11:56)
[2021-06-30 14:00] VITALS: BP 147/97; PULSE 104; RESP 18; TEMP 36.7; O2SAT 100
[2021-06-30 20:20] VITALS: BP 152/93; PULSE 102; RESP 17; TEMP 36.8; O2SAT 98
[2021-06-30] MEDS: chlorPROMazine 50 mg Tablet 100 MG PO (20:31)
[2021-06-30] MEDS: LORazepam 2 mg/mL INJ 1 mL 4 MG PO (20:33)
[2021-06-30] MEDS: diphenhydrAMINE 50 mg Capsule PO (20:34)
[2021-06-30] MEDS: carBAMazepine 200 mg Tablet PO (20:34)
[2021-07-01] MEDS: acetaminophen 325 mg Tablet 650 MG PO (04:12)
[2021-07-01] MEDS: nicotine 2 mg Gum BUCCAL ×7 (04:46→21:43)
[2021-07-01 06:00] VITALS: BP 146/83; PULSE 96; RESP 17; TEMP 36.9; O2SAT 100
[2021-07-01] MEDS: cloZAPine 25 mg Tablet 50 MG PO ×2 (07:59→21:08)
[2021-07-01] MEDS: carBAMazepine 200 mg Tablet 100 MG PO (07:59)
[2021-07-01] MEDS: buprenorphine-naloxone 4-1 mg Film 2 EACH SUBLINGUAL ×2 (08:00→17:36)
[2021-07-01] MEDS: docusate sodium 100 mg Capsule PO (09:50)
[2021-07-01] MEDS: hyDROXYzine 25 mg Capsule 50 MG PO (13:03)
[2021-07-01] MEDS: OLANZapine 5 mg ODT PO (13:03)
[2021-07-01 14:00] VITALS: BP 139/95; PULSE 107; RESP 17; TEMP 36.7; O2SAT 97
--- NOTE | 2021-07-01 14:23 | W.PM.NPUPNS ---
Subjective NPU Subjective: He was found walking up and down the halls. He has frequently been running in the [place] recently. The nurses have redirected him not to do that. He is certainly doing better. Another patient was confronting him earlier today and he backed away after being insulted. He says that he is having time incongruity. It seems like time is not moving as it should. He slept about 6 hours last night with Ativan 4 mg IM. The order said p.o. as far as I can see but also in the order where the nurses see it is said IM. It will be changed to p.o. only. He said that his father told him that he should sign up for the 21-day stay. He was told that he cannot sign up for that that is something that the court orders. He would not have to stay for the 21 days. He was told that we were going to do that because he frequently suddenly wants to go home and he is not safe at this point to go home. He said he understood. Mental Status Exam MSE Comments: This is a 31-year-old appropriate weight male who appears approximately his stated age and is in no acute distress. He is pleasant and cooperative with the evaluation. He is fairly well groomed. He has multiple barrett on his arms evidently from cigarettes. psychomotor activity is increased. Speech is at a regular rate and rhythm, normal volume, good articulation, mildly pressured. No clang associations Alert, oriented X3 Attention and concentration appears to be normal. Memory is intact Mood is good. Affect is euthymic. Thought process is logical and goal-directed. Thought content: Denies auditory and visual hallucinations. He continues to be delusional but is improving. No current suicidal ideation, and no homicidal ideation. Fund of knowledge is average. Insight and judgment appear to be poor. Impulse control is poor. Cognition: Patient Appearance: Appropriate Level of Consciousness: Drowsy Patient Cognition Impaired: No Ability to Follow Directions: Good Patient Orientation (long list): Person, Place, Name, Age, Birthday, Day of Month, Day of Week, Month and Year Comprehension Ability: Mild Impairment Hallucination Type: None Delusion Description: Not Present Thought Process: Circumstantial Affect: Affect Description: Appropriate and Calm Depressive Symptoms: Increased Anxiety Behavior: Patient Behavior: Appropriate, Cooperative and Impulsive Speech Pattern: Appropriate and Clear Vitals/I&O/Wt Last Vital Signs Temp 98.5 F 07/01/21 06:00 Pulse 96 07/01/21 06:00 Resp 17 07/01/21 06:00 BP 146/83 07/01/21 06:00 Pulse Ox 100 07/01/21 06:00 Data NPU : 06/25/21 21:16 06/25/21 21:16 A&P Assessment and plan (1) Bipolar disorder, current episode mixed, severe, without psychotic features: Status: Acute (2) Nicotine dependence, cigarettes, uncomplicated: Status: Acute (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 Continue current medication. Increase Thorazine to help him sleep and increase Tegretol to 500 mg daily. Buprenorphine was restarted at his request. Ativan 4 mg po and Benedryl for sleep. 2. Continue every 15 minute checks for safety. 3. Encourage individual, group and milieu therapies. 4. Encourage sober living treatment after discharge at the highest level of care to which he is willing to commit. 5. We will monitor for safety for himself in the community prior to discharge. Involuntary Hold Information 96 Hour Hold: 96 Hour Involuntary Admission: Yes 96 Hour Hold Ending Date: 07/01/21 96 Hour Hold Ending Time: 21:01 Attestations NPU Medical Necessity Statement*: Inpatient hospitalization is medically necessary and the clinically appropriate intervention at this time. We will initiate medications and make changes as indicated. 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
[2021-07-01] MEDS: diphenhydrAMINE 50 mg/mL SDV 1mL IM ×2 (20:00)
[2021-07-01] MEDS: LORazepam 2 mg/mL INJ 1 mL IM (20:00)
[2021-07-01] MEDS: LORazepam 2 mg Tablet 4 MG PO (21:05)
[2021-07-01] MEDS: diphenhydrAMINE 50 mg Capsule PO (21:05)
[2021-07-01] MEDS: carBAMazepine 200 mg Tablet 400 MG PO (21:06)
[2021-07-01] MEDS: chlorPROMazine 50 mg Tablet 200 MG PO (21:06)
[2021-07-01 22:00] VITALS: BP 136/74; PULSE 99; RESP 17; TEMP 36.7; O2SAT 98
--- NOTE | 2021-07-01 23:31 | PC.NURSE ---
STAFF ENTERED UNIT FLOOR AFTER SHIFT REPORT WAS GIVEN, PT WAS NOTED TO BE PACING HEAVILY AND SHOUTING. A NEW PT HAD ARRIVED ON THE UNIT WHILE SHIFT REPORT WAS BEING GIVEN. PT WAS UPSET THAT SAID NEW PT HAD NOT YET BEEN PROCESSED. WHAT ARE YOU GUYS DOING? CAN'T YOU SEE THIS WOMAN IS ! SHE DOESN'T NEED TO BE SITTING HERE SO LONG! YOU NEED TO COME AND DO YOUR JOB! THIS PT PACING, STOMPING BACK AND FORTH FROM HIS ROOM TO THE BENCH AREA MULTIPLE TIMES OVER A 30 MINUTE TIME PERIOD. CODE 10 WAS NOT CALLED DUE TO NO PHYSICAL THREAT NOTED, BUT SECURITY WAS CALLED FOR ASSIST WITH GIVING MEDICATION. PT WAS GIVEN ATIVAN 2MG IM AND BENADRYL 50MG IM WITHOUT DIFFICULTY.
[2021-07-02 05:34] VITALS: BP 116/81; PULSE 93; RESP 17; TEMP 36.8; O2SAT 99
[2021-07-02] MEDS: nicotine 2 mg Gum BUCCAL ×8 (06:07→21:34)
[2021-07-02] MEDS: cloZAPine 25 mg Tablet 50 MG PO ×2 (08:53→20:57)
[2021-07-02] MEDS: carBAMazepine 200 mg Tablet 100 MG PO (08:53)
[2021-07-02] MEDS: buprenorphine-naloxone 4-1 mg Film 2 EACH SUBLINGUAL ×2 (09:43→20:57)
[2021-07-02] MEDS: hyDROXYzine 25 mg Capsule 50 MG PO (11:18)
--- NOTE | 2021-07-02 11:19 | PC.NURSE ---
PRN VISTARIL 50 MG GIVEN PO PER PT C/O STATED ANXIETY
[2021-07-02 14:00] VITALS: BP 127/83; PULSE 109; RESP 18; TEMP 36.7; O2SAT 99
--- NOTE | 2021-07-02 14:40 | P.NPUPN_ITS ---
Subjective NPU Subjective: He continues to gradually improve but still needed an IM dose of Ativan last night. He then received his 4 mg dose at bedtime and was up briefly at midnight but went back to sleep Mental Status Exam MSE Comments: This is a 31-year-old appropriate weight male who appears approximately his stated age and is in no acute distress. He is pleasant and cooperative with the evaluation. He is fairly well groomed. He has multiple barrett on his arms evidently from cigarettes. psychomotor activity is increased. Speech is at a regular rate and rhythm, normal volume, good articulation, mildly pressured. No clang associations Alert, oriented X3 Attention and concentration appears to be normal. Memory is intact Mood is good. Affect is euthymic. Thought process is logical and goal-directed. Thought content: Denies auditory and visual hallucinations. He continues to be delusional but is improving. No current suicidal ideation, and no homicidal ideation. Fund of knowledge is average. Insight and judgment appear to be poor. Impulse control is poor. Cognition: Patient Appearance: Disheveled/Poor Hygiene Level of Consciousness: Drowsy Patient Cognition Impaired: No Ability to Follow Directions: Good Patient Orientation (long list): Person, Place, Name, Age and Year Comprehension Ability: Mild Impairment Hallucination Type: None Delusion Description: Paranoid Ideation Thought Process: Disorganized and Flight of Ideas Affect: Affect Description: Calm Depressive Symptoms: Increased Anxiety Behavior: Patient Behavior: Cooperative Speech Pattern: Clear Vitals/I&O/Wt Last Vital Signs Temp 98.3 F 07/02/21 05:34 Pulse 93 07/02/21 05:34 Resp 17 07/02/21 05:34 BP 116/81 07/02/21 05:34 Pulse Ox 99 07/02/21 05:34 Data NPU : 06/25/21 21:16 06/25/21 21:16 A&P Assessment and plan (1) Bipolar disorder, current episode mixed, severe, without psychotic features: Status: Acute (2) Nicotine dependence, cigarettes, uncomplicated: Status: Acute (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 Continue current medication. increase Tegretol to 500 mg daily. Buprenorphine was restarted at his request. Ativan 4 mg po, Thorazine 200 mg and Benedryl for sleep. 2. Continue every 15 minute checks for safety. 3. Encourage individual, group and milieu therapies. 4. Encourage sober living treatment after discharge at the highest level of care to which he is willing to commit. 5. We will monitor for safety for himself in the community prior to discharge. Involuntary Hold Information 96 Hour Hold: 96 Hour Involuntary Admission: Yes 96 Hour Hold Ending Date: 07/01/21 96 Hour Hold Ending Time: 21:01 Attestations U Medical Necessity Statement*: Inpatient hospitalization is medically necessary and the clinically appropriate intervention at this time. We will initiate medications and make changes as indicated. 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
--- NOTE | 2021-07-02 14:54 | PC.SOCIAL ---
Patient attended and participated in group.
[2021-07-02] MEDS: acetaminophen 325 mg Tablet 650 MG PO (16:50)
[2021-07-02 20:40] VITALS: BP 147/95; PULSE 94; RESP 18; TEMP 36.9; O2SAT 100
[2021-07-02] MEDS: diphenhydrAMINE 50 mg Capsule PO (20:57)
[2021-07-02] MEDS: chlorPROMazine 50 mg Tablet 200 MG PO (20:57)
[2021-07-02] MEDS: LORazepam 2 mg Tablet 4 MG PO (20:57)
[2021-07-02] MEDS: carBAMazepine 200 mg Tablet 400 MG PO (22:22)
[2021-07-03] MEDS: nicotine 2 mg Gum BUCCAL ×9 (04:22→21:31)
[2021-07-03 06:00] VITALS: BP 108/74; PULSE 93; RESP 18; TEMP 36.7; O2SAT 100
[2021-07-03] MEDS: carBAMazepine 200 mg Tablet 100 MG PO (07:54)
[2021-07-03] MEDS: cloZAPine 25 mg Tablet 50 MG PO ×2 (07:54→21:30)
[2021-07-03] MEDS: buprenorphine-naloxone 4-1 mg Film 2 EACH SUBLINGUAL ×2 (07:55→21:30)
--- NOTE | 2021-07-03 10:08 | PC.NURSE ---
off unit for [address]
--- NOTE | 2021-07-03 11:05 | PC.NURSE ---
Returned from court at 1104 am. Shoes placed back into property container.
[2021-07-03] MEDS: hyDROXYzine 25 mg Capsule 50 MG PO (12:25)
--- NOTE | 2021-07-03 12:25 | PC.NURSE ---
PRN VISTARIL 50 MG GIVEN PO PER PT C/O STATED ANXIETY
[2021-07-03] MEDS: acetaminophen 325 mg Tablet 650 MG PO (13:52)
[2021-07-03 14:00] VITALS: BP 142/95; PULSE 95; RESP 20; TEMP 36.7; O2SAT 98
--- NOTE | 2021-07-03 15:59 | P.NPUPN_ITS ---
Subjective NPU Subjective: Patient presents today reporting that he is doing better and benefiting from the medication changes. We had multiple conversations today including earlier today at his 21-day hold hearing which he did not exist but did go to the hearing and report his willingness to stay and get appropriate t reatment. He denied any issues in regards to the medication now though he did have fairly tangential speech as we sat down for his formal evaluation. He reported eating okay and did not have any real sense of where he would like to go after discharge. Mental Status Exam MSE Comments: This is a well-nourished well-developed white male in hospital scrubs with limited grooming and eye contact.? Right eye has a whiteness noted where his eye should be and he has a prosthetic but he is not currently wear ing.? No abnormal movements except for psychomotor retardation.?Cooperative with exam in no acute distress.? Speech was slightly increased rate and normal volume.? Mood described as not bad today, affect slightly subdued.? Thought process disorganized at times with tangential speech. Thought content: Patient denied suicidal or homicidal ideation, he reported some paranoia and but did not appear guarded, he denied auditory or visual hallucinations but did report having some prior to admission.? Attention and concentration appeared intact and memory was mostly reliable but none were formally tested.? He is alert and oriented x3.? Insight and judgment appear limited, impulse control is limited. Vitals/I&O/Wt Last Vital Signs Temp 98.1 F 07/03/21 14:00 Pulse 95 07/03/21 14:00 Resp 20 H 07/03/21 14:00 BP 142/95 07/03/21 14:00 Pulse Ox 98 07/03/21 14:00 Data NPU : 06/25/21 21:16 06/25/21 21:16 A&P Assessment and plan (1) Suicidal ideation: Status: Acute (2) Depression: Status: Acute (3) Leg pain: Status: Acute (4) Acute psychosis: Status: Acute (5) Opioid dependence, uncomplicated: Status: Acute (6) Other stimulant dependence, uncomplicated: Status: Acute (7) On combination antipsychotic drug therapy: Status: Acute (8) Bipolar disorder with psychotic features: Status: Acute Plan This is a 31-year old single male with a history of bipolar disorder with recent noncompliance with medication, delusions and insomnia Plan: 1.? Continue current medication.? increased Tegretol to 500 mg daily.? Buprenorphine was restarted at his request.? Ativan 4 mg po, Thorazine 200 mg and Benedryl for sleep. 2.? Continue every 15 minute checks for safety. 3.? Encourage individual, group and milieu therapies. 4.? Encourage sober living treatment after discharge at the highest level of care to which he is willing to commit. 5.? Patient was placed on the 21-day hold.. Involuntary Hold Information 96 Hour Hold: 96 Hour Involuntary Admission: Yes 96 Hour Hold Ending Date: 07/01/21 96 Hour Hold Ending Time: 21:01 Attestations NPU Medical Necessity Statement*: Inpatient hospitalization is medically necessary and the clinically appropriate intervention at this time.? We will initiate medications and make changes as indicated. Patient on 21-day hold and we will work for appropriate discharge plan as his symptoms improved. 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
[2021-07-03 21:20] VITALS: BP 135/87; PULSE 92; RESP 18; TEMP 36.6; O2SAT 97
[2021-07-03] MEDS: diphenhydrAMINE 50 mg Capsule PO (21:30)
[2021-07-03] MEDS: chlorPROMazine 50 mg Tablet 200 MG PO (21:30)
[2021-07-03] MEDS: trazodone 50 mg Tablet PO (21:30)
[2021-07-03] MEDS: LORazepam 2 mg Tablet 4 MG PO (21:31)
[2021-07-03] MEDS: carBAMazepine 200 mg Tablet 400 MG PO (21:31)
[2021-07-03] MEDS: OLANZapine 5 mg ODT PO (22:40)
[2021-07-04 06:00] VITALS: RESP 18
[2021-07-04] MEDS: nicotine 2 mg Gum BUCCAL ×7 (06:44→22:43)
[2021-07-04] MEDS: cloZAPine 25 mg Tablet 50 MG PO ×2 (08:49→20:27)
[2021-07-04] MEDS: buprenorphine-naloxone 4-1 mg Film 2 EACH SUBLINGUAL ×2 (08:49→20:26)
[2021-07-04] MEDS: carBAMazepine 200 mg Tablet 100 MG PO (08:50)
[2021-07-04] MEDS: LORazepam 2 mg Tablet PO (11:32)
[2021-07-04] MEDS: diphenhydrAMINE 50 mg Capsule PO ×2 (11:32→20:26)
--- NOTE | 2021-07-04 12:28 | P.NPUPN_ITS ---
Subjective NPU Subjective: Patient presents today reporting that he is doing well overall. This interaction came with less kinetic energy. Staff reports some episodes of less hyperactivity that we had not seen. He reports that he is sleeping better and eating fine. We discussed taking a day at a time and waiting for the soledad to subside. He was cooperative with that plan. Mental Status Exam MSE Comments: This is a well-nourished well-developed white male in hospital scrubs with limited grooming and eye contact.? Right eye has a whiteness noted where his eye should be and he has a prosthetic but he is not currently wearing.? No abnormal movements except for psychomotor retardation.?Cooperative with exam in no acute distress.? Speech was slightly increased rate and normal volume.? Mood described as getting better, affect less animated.? Thought process disorganized at times with tangential speech but with some improvement. Thought content: Patient denied suicidal or homicidal ideation, he reported some paranoia and but did not appear guarded, he denied auditory or visual hallucinations but did report having some prior to admission.? Attention and concentration appeared intact and memory was mostly reliable but none were formally tested.? He is alert and oriented x3.? Insight and judgment appear limited, impulse control is limited. Vitals/I&O/Wt Last Vital Signs Temp 97.8 F 07/03/21 21:20 Pulse 92 07/03/21 21:20 Resp 18 07/04/21 06:00 BP 135/87 07/03/21 21:20 Pulse Ox 97 07/03/21 21:20 Data NPU : 06/25/21 21:16 06/25/21 21:16 A&P Assessment and plan (1) Bipolar disorder with psychotic features: Status: Acute (2) Suicidal ideation: Status: Acute (3) Depression: Status: Acute (4) Acute psychosis: Status: Acute (5) Opioid dependence, uncomplicated: Status: Acute (6) Other stimulant dependence, uncomplicated: Status: Acute (7) On combination antipsychotic drug therapy: Status: Acute Plan This is a 31-year old single male with a history of bipolar disorder with recent noncompliance with medication, delusions and insomnia Plan: 1.? Continue current medication.? increased Tegretol to 500 mg daily.? Buprenorphine was restarted at his request.? Ativan 4 mg po, Thorazine 200 mg and Benedryl for sleep. 2.? Continue every 15 minute checks for safety. 3.? Encourage individual, group and milieu therapies. 4.? Encourage sober living treatment after discharge at the highest level of ca re to which he is willing to commit. 5.? Patient was placed on the 21-day hold. Involuntary Hold Information 96 Hour Hold: 96 Hour Involuntary Admission: Yes 96 Hour Hold Ending Date: 07/01/21 96 Hour Hold Ending Time: 21:01 Attestations NPU Medical Necessity Statement*: Inpatient hospitalization is medically necessary and the clinically appropriate intervention at this time.? We will initiate medications and make changes as indicated.? Patient on 21-day hold and we will work for appropriate discharge plan as his symptoms improved. 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
[2021-07-04 14:00] VITALS: BP 126/68; PULSE 95; RESP 17; O2SAT 98
--- NOTE | 2021-07-04 15:14 | PC.NURSE ---
Nurse administerd oral Ativan 2mg Benadryl 50mg to pt experiencing anxiety.
[2021-07-04] MEDS: acetaminophen 325 mg Tablet 650 MG PO (20:13)
[2021-07-04] MEDS: LORazepam 2 mg Tablet 4 MG PO (20:25)
[2021-07-04] MEDS: carBAMazepine 200 mg Tablet 400 MG PO (20:26)
[2021-07-04] MEDS: chlorPROMazine 50 mg Tablet 200 MG PO (20:26)
[2021-07-04] MEDS: trazodone 50 mg Tablet PO (20:26)
[2021-07-04 20:51] VITALS: BP 117/81; PULSE 92; RESP 17; O2SAT 99
[2021-07-04] MEDS: ondansetron 4 MG Tablet PO (23:48)
[2021-07-05] MEDS: nicotine 2 mg Gum BUCCAL ×9 (01:49→20:12)
[2021-07-05 05:45] VITALS: BP 115/71; PULSE 102; RESP 18; O2SAT 99
[2021-07-05] MEDS: cloZAPine 25 mg Tablet 50 MG PO ×2 (07:44→20:36)
[2021-07-05] MEDS: carBAMazepine 200 mg Tablet 100 MG PO (07:45)
[2021-07-05] MEDS: docusate sodium 100 mg Capsule PO (07:45)
[2021-07-05] MEDS: buprenorphine-naloxone 4-1 mg Film 2 EACH SUBLINGUAL ×2 (07:45→20:35)
[2021-07-05] MEDS: acetaminophen 325 mg Tablet 650 MG PO (08:51)
[2021-07-05 14:00] VITALS: BP 115/73; PULSE 86; RESP 17; TEMP 36.7; O2SAT 99
--- NOTE | 2021-07-05 15:05 | P.NPUPN_ITS ---
Subjective NPU Subjective: Patient presents today reporting that he is doing fine and feels like he is having continued daily improvement. We discussed some delicate subjects including his relationship with his father and some of the challenging circumstances that they have been in recently including issues surrounding a squatters in the head on the property as well as a dog that recently. He had significant challenges in this conversation. He reports he is eating and sleeping better. Mental Status Exam MSE Comments: This is a well-nourished well-developed white male in hospital scrubs with adequate grooming and eye contact.? Right eye has a whiteness noted where his eye should be and he has a prosthetic but he is not currently wearing.? No abnormal movements except for mild psychomotor retardation.?Coopera tive with exam in no acute distress.? Speech was more normal rate and normal volume.? Mood described as a little better, affect less animated.? Thought process more organized at times.? Thought content: Patient denied suicidal or homicidal ideation, he reported some paranoia and but did not appear guarded, he denied auditory or visual hallucinations but did report having some prior to admission.? Attention and concentration appeared intact and memory was mostly reliable but none were formally tested.? He is alert and oriented x3.? Insight and judgment appear limited, impulse control is limited. Vitals/I&O/Wt Last Vital Signs Temp 97.8 F 07/03/21 21:20 Pulse 102 H 07/05/21 05:45 Resp 18 07/05/21 05:45 BP 115/71 07/05/21 05:45 Pulse Ox 99 07/05/21 05:45 Data NPU : 06/25/21 21:16 06/25/21 21:16 A&P Assessment and plan (1) Bipolar disorder with psychotic features: Status: Acute (2) Suicidal ideation: Status: Acute (3) Acute psychosis: Status: Acute (4) Opioid dependence, uncomplicated: Status: Acute (5) Other stimulant dependence, uncomplicated: Status: Acute (6) On combination antipsychotic drug therapy: Status: Acute Plan This is a 31-year old single male with a history of bipolar disorder with recent noncompliance with medication, delusions and insomnia Plan: 1.? Continue current medication.? increased Tegretol to 500 mg daily.? Buprenorphine was restarted at his request.? Ativan 4 mg po, Thorazine 200 mg and Benedryl for sleep. 2.? Continue every 15 minute checks for safety. 3.? Encourage individual, group and milieu therapies. 4.? Encourage sober living treatment after discharge at the highest level of c are to which he is willing to commit. 5.? Patient was placed on the 21-day hold. Involuntary Hold Information 96 Hour Hold: 96 Hour Involuntary Admission: Yes 96 Hour Hold Ending Date: 07/01/21 96 Hour Hold Ending Time: 21:01 Attestations NPU Medical Necessity Statement*: Inpatient hospitalization is medically necessary and the clinically appropriate intervention at this time.? We will initiate medications and make changes as indicated.? Patient on 21-day hold and we will work for appropriate discharge plan as his symptoms improved. 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
[2021-07-05] MEDS: trazodone 50 mg Tablet PO (20:35)
[2021-07-05] MEDS: LORazepam 2 mg Tablet 4 MG PO (20:36)
[2021-07-05] MEDS: carBAMazepine 200 mg Tablet 400 MG PO (20:36)
[2021-07-05] MEDS: diphenhydrAMINE 50 mg Capsule PO (20:36)
[2021-07-05 20:47] VITALS: BP 138/90; PULSE 88; RESP 16; TEMP 37; O2SAT 99
[2021-07-05] MEDS: chlorPROMazine 25 mg Tablet 200 MG PO (21:06)
[2021-07-06] MEDS: nicotine 2 mg Gum BUCCAL ×9 (01:58→21:57)
[2021-07-06 05:34] VITALS: BMI 23.5
[2021-07-06 05:58] VITALS: BP 102/68; PULSE 74; RESP 16; TEMP 36.6; O2SAT 98
[2021-07-06] MEDS: cloZAPine 25 mg Tablet 50 MG PO ×2 (08:40→20:12)
[2021-07-06] MEDS: carBAMazepine 200 mg Tablet 100 MG PO (08:40)
[2021-07-06] MEDS: buprenorphine-naloxone 4-1 mg Film 2 EACH SUBLINGUAL ×2 (08:41→20:13)
--- NOTE | 2021-07-06 09:19 | W.PM.NPUPNS ---
Subjective NPU Subjective: Patient presents today reporting that he is feeling a little better and denying any acute problems. He denies having spoken with his that the last 24 hours. But reports that maybe he should consider an alternative living arrangement long-term. 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 He reports after that he was hoping to get himself a house independently. Mental Status Exam MSE Comments: This is a well-nourished well-developed white male in hospital scrubs with adequate grooming and eye contact.? Right eye has a whiteness noted where his eye should be and he has a prosthetic but he is not currently wearing.? No abnormal movements except for mild psychomotor retardation.?Cooperative with exam in no acute distress.? Speech was more normal rate and normal volume.? Mood described as a little better, affect less animated.? Thought process more organized at times.? Thought content: Patient denied suicidal or homicidal ideation, he reported some paranoia and but did not appear guarded, he denied auditory or visual hallucinations but did report having some prior to admission.? Attention and concentration appeared intact and memory was mostly reliable but none were formally tested.? He is alert and oriented x3.? Insight and judgment appear limited, impulse control is limited. Vitals/I&O/Wt Last Vital Signs Temp 97.8 F 07/06/21 05:58 Pulse 74 07/06/21 05:58 Resp 16 07/06/21 05:58 BP 102/68 07/06/21 05:58 Pulse Ox 98 07/06/21 05:58 Weight last 48 hrs Weight 68.039 kg Data NPU : 06/25/21 21:16 06/25/21 21:16 A&P Assessment and plan (1) Bipolar disorder with psychotic features: Status: Acute (2) Suicidal ideation: Status: Acute (3) Depression: Status: Acute (4) Acute psychosis: Status: Acute (5) Opioid dependence, uncomplicated: Status: Acute (6) Other stimulant dependence, uncomplicated: Status: Acute (7) On combination antipsychotic drug therapy: Status: Acute Plan This is a 31-year old single male with a history of bipolar disorder with recent noncompliance with medication, delusions and insomnia Plan: 1.? Continue current medication.? increased Tegretol to 500 mg daily.? Buprenorphine was restarted at his request.? Ativan 4 mg po, Thorazine 200 mg and Benedryl for sleep. 2.? Continue every 15 minute checks for safety. 3.? Encourage individual, group and milieu therapies. 4.? Encourage sober living treatment after discharge at the highest level of care to which he is willing to commit. 5.? Patient was placed on the 21-day hold. Involuntary Hold Information 96 Hour Hold: 96 Hour Involuntary Admission: Yes 96 Hour Hold Ending Date: 07/01/21 96 Hour Hold Ending Time: 21:01 Attestations NPU Medical Necessity Statement*: Inpatient hospitalization is medically necessary and the clinically appropriate intervention at this time.? We will initiate medications and make changes as indicated.? Patient on 21-day hold and we will work for appropriate discharge plan as his symptoms improve. 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
[2021-07-06] MEDS: hyDROXYzine 25 mg Capsule 50 MG PO ×2 (09:33→17:48)
[2021-07-06] MEDS: acetaminophen 325 mg Tablet 650 MG PO (10:26)
[2021-07-06 14:00] VITALS: BP 110/71; PULSE 71; RESP 16; TEMP 36.4; O2SAT 98
[2021-07-06] MEDS: chlorPROMazine 25 mg Tablet 200 MG PO (20:12)
[2021-07-06] MEDS: LORazepam 2 mg Tablet 4 MG PO (20:12)
[2021-07-06] MEDS: carBAMazepine 200 mg Tablet 400 MG PO (20:13)
[2021-07-06] MEDS: diphenhydrAMINE 50 mg Capsule PO (20:13)
[2021-07-06 21:08] VITALS: BP 116/89; PULSE 82; RESP 18; TEMP 36.9; O2SAT 99
[2021-07-07] MEDS: nicotine 2 mg Gum BUCCAL ×9 (03:25→20:22)
[2021-07-07 06:00] VITALS: BP 105/73; PULSE 88; RESP 18; TEMP 36.5; O2SAT 98
[2021-07-07] MEDS: cloZAPine 25 mg Tablet 50 MG PO ×2 (08:13→20:20)
[2021-07-07] MEDS: carBAMazepine 200 mg Tablet 100 MG PO (08:13)
[2021-07-07] MEDS: buprenorphine-naloxone 4-1 mg Film 2 EACH SUBLINGUAL ×2 (08:14→20:22)
[2021-07-07] MEDS: docusate sodium 100 mg Capsule PO (09:04)
[2021-07-07] MEDS: OLANZapine 5 mg ODT PO (11:37)
[2021-07-07] MEDS: acetaminophen 325 mg Tablet 650 MG PO (12:12)
[2021-07-07 14:00] VITALS: BP 143/82; PULSE 80; RESP 18; TEMP 36.4; O2SAT 99
--- NOTE | 2021-07-07 16:08 | W.PM.NPUPNS ---
Subjective NPU Subjective: Patient presents today reporting that he is doing fine and feeling better each day. We discussed his vision for discharge once he was doing much better. We also continue to discuss the challenging relationship with his father and aspects of sobriety and the role that it plays in his wellness. Mental Status Exam MSE Comments: This is a well-nourished well-developed white male in hospital scrubs with adequate grooming and eye contact.? Right eye has a whiteness noted where his eye should be and he has a prosthetic but he is not currently wearing.? No abnormal movements except for mild psychomotor retardation.?Cooperative with exam in no acute distress.? Speech was more normal rate and normal volume.? Mood described as a little better, affect less animated.? Thought process more organized at times.? Thought content: Patient denied suicidal or homicidal ideation, he reported some paranoia and but did not appear guarded, he denied auditory or visual hallucinations but did report having some prior to admission.? Attention and concentration appeared intact and memory was mostly reliable but none were formally tested.? He is alert and oriented x3.? Insight and judgment appear limited, impulse control is limited. Vitals/I&O/Wt Last Vital Signs Temp 97.6 F 07/07/21 14:00 Pulse 80 07/07/21 14:00 Resp 18 07/07/21 14:00 BP 143/82 07/07/21 14:00 Pulse Ox 99 07/07/21 14:00 Weight last 48 hrs Weight 68.039 kg Data NPU : 06/25/21 21:16 06/25/21 21:16 A&P Assessment and plan (1) Bipolar disorder with psychotic features: Status: Acute (2) Suicidal ideation: Status: Acute (3) Depression: Status: Acute (4) Acute psychosis: Status: Acute (5) Opioid dependence, uncomplicated: Status: Acute (6) Other stimulant dependence, uncomplicated: Status: Acute (7) On combination antipsychotic drug therapy: Status: Acute Plan This is a 31-year old single male with a history of bipolar disorder with recent noncompliance with medication, delusions and insomnia Plan: 1.? Continue current medication.? increased Tegretol to 500 mg daily.? Buprenorphine was restarted at his request.? Ativan 4 mg po, Thorazine 200 mg and Benedryl for sleep. We will systematically start decreasing the Ativan. 2.? Continue every 15 minute checks for safety. 3.? Encourage individual, group and milieu therapies. 4.? Encourage sober living treatment after discharge at the highest level of care to which he is willing to commit. 5.? Patient was placed on the 21-day hold. Involuntary Hold Information 96 Hour Hold: 96 Hour Involuntary Admission: Yes 96 Hour Hold Ending Date: 07/01/21 96 Hour Hold Ending Time: 21:01 Attestations NPU Medical Necessity Statement*: Inpatient hospitalization is medically necessary and the clinically appropriate intervention at this time.? We will initiate medications and make changes as indicated.? Patient on 21-day hold and we will work for appropriate discharge plan as his symptoms improve. 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
[2021-07-07] MEDS: diphenhydrAMINE 50 mg Capsule PO (20:20)
[2021-07-07] MEDS: carBAMazepine 200 mg Tablet 400 MG PO (20:21)
[2021-07-07] MEDS: LORazepam 2 mg Tablet 4 MG PO (20:21)
[2021-07-07] MEDS: chlorPROMazine 50 mg Tablet 200 MG PO (20:22)
[2021-07-07 20:43] VITALS: BP 121/67; PULSE 92; RESP 17; TEMP 37
[2021-07-08] MEDS: nicotine 2 mg Gum BUCCAL ×9 (00:35→20:28)
[2021-07-08] MEDS: ondansetron 4 MG Tablet PO (04:35)
[2021-07-08] MEDS: acetaminophen 325 mg Tablet 650 MG PO (05:03)
[2021-07-08 06:00] VITALS: BP 106/75; PULSE 94; RESP 19; TEMP 37.1; O2SAT 100
[2021-07-08] MEDS: carBAMazepine 200 mg Tablet 100 MG PO ×2 (08:24→20:29)
[2021-07-08] MEDS: cloZAPine 25 mg Tablet 50 MG PO ×2 (08:25→20:27)
[2021-07-08] MEDS: buprenorphine-naloxone 4-1 mg Film 2 EACH SUBLINGUAL ×2 (08:25→20:31)
[2021-07-08 14:00] VITALS: BP 126/77; PULSE 87; RESP 18; TEMP 37.2; O2SAT 99
--- NOTE | 2021-07-08 18:02 | P.NPUPN_ITS ---
Subjective NPU Subjective: Patient presents today reporting that he feels more focused in his plan. He reports that he like to go stay with his mother in [place]. 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 He denies having any negative or aggressive thoughts or any thoughts with intention to hurt others. He reports that he is eating and sleeping better. Mental Status Exam MSE Comments: This is a well-nourished well-developed white male in hospital scrubs with adequate grooming and eye contact.? Right eye has a whiteness noted where his eye should be and he has a prosthetic but he is not currently wearing.? No abnormal movements except for mild psychomotor retardat ion.?Cooperative with exam in no acute distress.? Speech was more normal rate and normal volume.? Mood described as a little better, affect more congruent.? Thought process more organized at times.? Thought content: Patient denied suicidal or homicidal ideation, he reported some paranoia and but did not appear guarded, he denied auditory or visual hallucinations but did report having some prior to admission.? Attention and concentration appeared intact and memory was mostly reliable but none were formally tested.? He is alert and oriented x3.? Insight and judgment appear limited, impulse control is limited. Vitals/I&O/Wt Last Vital Signs Temp 98.9 F 07/08/21 14:00 Pulse 87 07/08/21 14:00 Resp 18 07/08/21 14:00 BP 126/77 07/08/21 14:00 Pulse Ox 99 07/08/21 14:00 Data NPU : 06/25/21 21:16 06/25/21 21:16 A&P Assessment and plan (1) Bipolar disorder with psychotic features: Status: Acute (2) Suicidal ideation: Status: Acute (3) Depression: Status: Acute (4) Acute psychosis: Status: Acute (5) Opioid dependence, uncomplicated: Status: Acute (6) Other stimulant dependence, uncomplicated: Status: Acute (7) On combination antipsychotic drug therapy: Status: Acute Plan This is a 31-year old single male with a history of bipolar disorder with recent noncompliance with medication, delusions and insomnia Plan: 1.? Continue current medication.? increased Tegretol to 500 mg daily.? Buprenorphine was restarted at his request.? Ativan 4 mg po, Thorazine 200 mg and Benedryl for sleep.? We will systematically start decreasing the Ativan. 2.? Continue every 15 minute checks for safety. 3.? Encourage individual, group and milieu therapies. 4.? Encourage sober living treatment after discharge at the highest level of care to which he is willing to commit. 5.? Patient was placed on the 21-day hold. Involuntary Hold Information 96 Hour Hold: 96 Hour Involuntary Admission: Yes 96 Hour Hold Ending Date: 07/01/21 96 Hour Hold Ending Time: 21:01 Attestations NPU Medical Necessity Statement*: Inpatient hospitalization is medically necessary and the clinically appropriate intervention at this time.? We will initiate medications and make changes as indicated.? Patient on 21-day hold and we will work for appropriate discharge plan as his symptoms improve. 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
[2021-07-08 20:23] VITALS: BP 133/91; PULSE 82; RESP 18; TEMP 36.7; O2SAT 98
[2021-07-08] MEDS: chlorPROMazine 50 mg Tablet 200 MG PO (20:27)
[2021-07-08] MEDS: LORazepam 2 mg Tablet 3 MG PO (20:28)
[2021-07-08] MEDS: diphenhydrAMINE 50 mg Capsule PO (20:28)
[2021-07-08] MEDS: carBAMazepine 200 mg Tablet 400 MG PO (23:16)
[2021-07-09] MEDS: nicotine 2 mg Gum BUCCAL ×9 (02:28→23:53)
[2021-07-09 06:00] VITALS: BP 101/55; PULSE 68; RESP 16; TEMP 36.6; O2SAT 98
[2021-07-09] MEDS: cloZAPine 25 mg Tablet 50 MG PO ×2 (07:58→20:06)
[2021-07-09] MEDS: carBAMazepine 200 mg Tablet 100 MG PO (07:58)
[2021-07-09] MEDS: buprenorphine-naloxone 4-1 mg Film 2 EACH SUBLINGUAL ×2 (07:58→20:06)
[2021-07-09 14:00] VITALS: BP 122/81; PULSE 81; RESP 17; TEMP 36.6; O2SAT 98
--- NOTE | 2021-07-09 14:16 | P.NPUPN_ITS ---
Subjective NPU Subjective: Patient presents today having drawn all over his wall that spanned the length of the room from behind his bed to behind the other bed from the ceiling to the floor with what appears to be stream of consciousness to some degree. We had long discussion about the meanings of some of the statements. Many of them he would say it is hard to explain. Others he would say there was a thought that was on his mind. He reports that he had to get this something out of his system. He did not appear to identify the level of inappropriateness of this behavior. Mental Status Exam MSE Comments: This is a well-nourished well-developed white male in hospital scrubs with adequate grooming and eye contact.? Right eye has a whiteness noted where his eye should be and he has a prosthetic but he is not currently wearing.? No abnormal movements except for mild psychomotor retardation.?Cooperative with exam in no acute distress.? Speech was more normal rate and normal volume.? Mood described as okay, affect congruent.? Thought process more organized at times.? Thought content: Patient denied suicidal or homicidal ideation, he reported some paranoia and but did not appear guarded, he denied auditory or visual hallucinations but did report having some prior to admission.? Attention and concentration appeared intact and memory was mostly reliable but none were formally tested.? He is alert and oriented x3.? Insight and judgment appear limited, impulse control is limited. Vitals/I&O/Wt Last Vital Signs Temp 97.8 F 07/09/21 06:00 Pulse 68 07/09/21 06:00 Resp 16 07/09/21 06:00 BP 101/55 07/09/21 06:00 Pulse Ox 98 07/09/21 06:00 Data NPU : 06/25/21 21:16 06/25/21 21:16 A&P Assessment and plan (1) Bipolar disorder with psychotic features: Status: Acute (2) Suicidal ideation: Status: Acute (3) Depression: Status: Acute (4) Acute psychosis: Status: Acute (5) Opioid dependence, uncomplicated: Status: Acute (6) Other stimulant dependence, uncomplicated: Status: Acute (7) On combination antipsychotic drug therapy: Status: Acute (8) Methamphetamine addiction: Status: Acute Plan This is a 31-year old single male with a history of bipolar disorder with recent noncompliance with medication, delusions and insomnia Plan: 1.? Continue current medication.? increased Tegretol to 500 mg daily.? Buprenorphine was restarted at his request.? Ativan 3 mg po, Thorazine 200 mg and Benedryl for sleep.? We will continue to systematically decrease the Ativan. We will increase clozapine to 75 mg p.o. twice daily 2.? Continue every 15 minute checks for safety. 3.? Encourage individual, group and milieu therapies. 4.? Encourage sober living treatment after discharge at the highest level of care to which he is willing to commit. 5.? Patient was placed on the 21-day hold. Involuntary Hold Information 96 Hour Hold: 96 Hour Involuntary Admission: Yes 96 Hour Hold Ending Date: 07/01/21 96 Hour Hold Ending Time: 21:01 Attestations NPU Medical Necessity Statement*: Inpatient hospitalization is medically necessary and the clinically appropriate intervention at this time.? We will initiate medications and make changes as indicated.? Patient on 21-day hold and we will work for appropriate discharge plan as his symptoms improve. 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
[2021-07-09] MEDS: hyDROXYzine 25 mg Capsule 50 MG PO (16:13)
--- NOTE | 2021-07-09 16:19 | PC.NURSE ---
PRN VISTARIL 50 MG GIVEN PO PER PT C/O STATED ANXIETY
[2021-07-09] MEDS: blistex lip oint 7 gm Tube 1 APPLIC TOPICAL (18:10)
[2021-07-09] MEDS: LORazepam 2 mg Tablet 3 MG PO (20:06)
[2021-07-09] MEDS: chlorPROMazine 50 mg Tablet 200 MG PO (20:06)
[2021-07-09] MEDS: carBAMazepine 200 mg Tablet 400 MG PO (20:07)
[2021-07-09] MEDS: diphenhydrAMINE 50 mg Capsule PO (20:07)
[2021-07-09 21:25] VITALS: BP 148/94; PULSE 72; RESP 16; TEMP 36.7; O2SAT 98
[2021-07-10] MEDS: nicotine 2 mg Gum BUCCAL ×7 (04:48→20:38)
[2021-07-10] MEDS: acetaminophen 325 mg Tablet 650 MG PO (07:20)
[2021-07-10] MEDS: cloZAPine 25 mg Tablet 50 MG PO (08:14)
[2021-07-10] MEDS: carBAMazepine 200 mg Tablet 100 MG PO (08:15)
[2021-07-10] MEDS: buprenorphine-naloxone 4-1 mg Film 2 EACH SUBLINGUAL ×2 (08:15→20:39)
--- NOTE | 2021-07-10 09:13 | PC.NURSE ---
To room for assessment. Reports I think I'm ready to leave and go back with my mom. Denies pain. Denies SI/HI and AVH at this time. States he slept well. Appears to be in good spirits when speaking about future. Continues to be disorganized at times with speech and though process.
[2021-07-10] MEDS: cloZAPine 25 mg Tablet PO (09:49)
[2021-07-10] MEDS: hyDROXYzine 25 mg Capsule 50 MG PO (13:16)
[2021-07-10 14:00] VITALS: BP 117/76; PULSE 80; RESP 17; TEMP 36.8; O2SAT 100
--- NOTE | 2021-07-10 17:59 | W.PM.NPUPNS ---
Subjective NPU Subjective: Patient presents today denying any new issues. He has not reported any concerns with the initiation of the increased Clozaril. He continues to be active and doing things to his wall. He has no reasonable response and discussed the fact that we do not want him to facing the property and he has no explanation for why he cannot contain himself in this behavior pattern. We discussed with staff not allowing him to have writing utensils until this behavior is under control. He reported eating and sleeping fine and endorsed feeling like he is nearing readiness for discharge to go with his mother. Mental Status Exam MSE Comments: This is a well-nourished well-developed white male in hospital scrubs with adequate grooming and eye contact.? Right eye has a whiteness noted where his eye should be and he has a prosthetic but he is not currently wearing.? No abnormal movements except for mild psychomotor retardation.?Cooperative with exam in no acute distress.? Speech was more normal rate and normal volume.? Mood described as fine, affect congruent but pensive. Thought process more organized at times.? Thought content: Patient denied suicidal or homicidal ideation, he reported some paranoia and but did not appear guarded, he denied auditory or visual hallucinations but did report having some prior to admission.? Attention and concentration appeared intact and memory was mostly reliable but none were formally tested.? He is alert and oriented x3.? Insight and judgment appear limited, impulse control is limited. Vitals/I&O/Wt Last Vital Signs Temp 98.4 F 07/10/21 21:44 Pulse 83 07/10/21 21:44 Resp 18 07/10/21 21:44 BP 133/84 07/10/21 21:44 Pulse Ox 98 07/10/21 21:44 Data NPU : 06/25/21 21:16 06/25/21 21:16 A&P Assessment and plan (1) Bipolar disorder with psychotic features: Status: Acute (2) Suicidal ideation: Status: Acute (3) Depression: Status: Acute (4) Acute psychosis: Status: Acute (5) Opioid dependence, uncomplicated: Status: Acute (6) Other stimulant dependence, uncomplicated: Status: Acute (7) On combination antipsychotic drug therapy: Status: Acute (8) Methamphetamine addiction: Status: Acute Plan This is a 31-year old single male with a history of bipolar disorder with recent noncompliance with medication, delusions and insomnia Plan: 1.? Continue current medication.? increased Tegretol to 500 mg daily.? Buprenorphine was restarted at his request.? Ativan 3 mg po, Thorazine 200 mg and Benedryl for sleep.? We will continue to systematically decrease the Ativan.? We increased clozapine to 75 mg p.o. twice daily 2.? Continue every 15 minute checks for safety. 3.? Encourage individual, group and milieu therapies. 4.? Encourage sober living treatment after discharge at the highest level of care to which he is willing to commit. 5.? Patient was placed on the 21-day hold. Involuntary Hold Information 96 Hour Hold: 96 Hour Involuntary Admission: Yes 96 Hour Hold Ending Date: 07/01/21 96 Hour Hold Ending Time: 21:01 Attestations NPU Medical Necessity Statement*: Inpatient hospitalization is medically necessary and the clinically appropriate intervention at this time.? We will initiate medications and make changes as indicated.? Patient on 21-day hold and we will work for appropriate discharge plan as his symptoms improve. 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
[2021-07-10] MEDS: diphenhydrAMINE 50 mg Capsule PO (20:39)
[2021-07-10] MEDS: chlorPROMazine 50 mg Tablet 200 MG PO (20:39)
[2021-07-10] MEDS: carBAMazepine 200 mg Tablet 400 MG PO (20:39)
[2021-07-10] MEDS: LORazepam 2 mg Tablet 3 MG PO (20:39)
[2021-07-10 21:44] VITALS: BP 133/84; PULSE 83; RESP 18; TEMP 36.9; O2SAT 98
[2021-07-11] MEDS: nicotine 2 mg Gum BUCCAL ×8 (00:04→20:35)
[2021-07-11] MEDS: acetaminophen 325 mg Tablet 650 MG PO (04:06)
[2021-07-11 06:00] VITALS: BP 120/84; PULSE 74; RESP 20; TEMP 36.6; O2SAT 99
[2021-07-11] MEDS: carBAMazepine 200 mg Tablet 100 MG PO (09:04)
[2021-07-11] MEDS: cloZAPine 25 mg Tablet 75 MG PO ×2 (09:05→21:27)
[2021-07-11] MEDS: buprenorphine-naloxone 4-1 mg Film 2 EACH SUBLINGUAL ×2 (09:05→20:36)
[2021-07-11 14:00] VITALS: BP 126/82; PULSE 128; RESP 20; TEMP 37.1; O2SAT 97
--- NOTE | 2021-07-11 18:39 | P.NPUPN_ITS ---
Subjective NPU Subjective: Patient presents today reporting that he is doing okay and adjusting to the Clozaril. He denies any issues with his psychosis but continues to be odd thinking conceptually. Not being able to really explain his mindset especially with the behaviors like writing on the wall. He denies any side effects to the medication. Reported he is eating and sleeping well. Mental Status Exam MSE Comments: This is a well-nourished well-developed white male in hospital scrubs with adequate grooming and eye contact.? Right eye has a whiteness noted where his eye should be and he has a prosthetic but he is not currently wearing.? No abnormal movements except for mild psychomotor retardation.?Cooperative with exam in no acute distress.? Speech was more normal rate and normal volume.? Mood described as a little tired but okay, affect congruent but pensive.? Thought process more organized at times.? Thought content: Patient denied suicidal or homicidal ideation, he reported some paranoia and but did not appear guarded, he denied auditory or visual hallucinations but did report having some prior to admission.? Attention and concentration appeared intact and memory was mostly reliable but none were formally tested.? He is alert and oriented x3.? Insight and judgment appear limited, impulse control is limited. Vitals/I&O/Wt Last Vital Signs Temp 98.1 F 07/11/21 20:20 Pulse 69 07/11/21 20:20 Resp 17 07/11/21 20:20 BP 131/86 07/11/21 20:20 Pulse Ox 99 07/11/21 20:20 Data NPU : 06/25/21 21:16 06/25/21 21:16 A&P Assessment and plan (1) Bipolar disorder with psychotic features: Status: Acute (2) Suicidal ideation: Status: Acute (3) Depression: Status: Acute (4) Acute psychosis: Status: Acute (5) Opioid dependence, uncomplicated: Status: Acute (6) Other stimulant dependence, uncomplicated: Status: Acute (7) On combination antipsychotic drug therapy: Status: Acute (8) Methamphetamine addiction: Status: Acute Plan This is a 31-year old single male with a history of bipolar disorder with recent noncompliance with medication, delusions and insomnia Plan: 1.? Continue current medication.? increased Tegretol to 500 mg daily.? Buprenorphine was restarted at his request.? Ativan 3 mg po, Thorazine 200 mg and Benedryl for sleep.? We will continue to systematically decrease the Ativan.? We increased clozapine to 75 mg p.o. twice daily 2.? Continue every 15 minute checks for safety. 3.? Encourage individual, group and milieu therapies. 4.? Encourage sober living treatment after discharge at the highest level of care to which he is willing to commit. 5.? Patient was placed on the 21-day hold. Involuntary Hold Information 96 Hour Hold: 96 Hour Involuntary Admission: Yes 96 Hour Hold Ending Date: 07/01/21 96 Hour Hold Ending Time: 21:01 Attestations NPU Medical Necessity Statement*: Inpatient hospitalization is medically necessary and the clinically appropriate intervention at this time.? We will initiate medications and make changes as indicated.? Patient on 21-day hold and we will work for appropriate discharge plan as his symptoms improve. 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
[2021-07-11 20:20] VITALS: BP 131/86; PULSE 69; RESP 17; TEMP 36.7; O2SAT 99
[2021-07-11] MEDS: chlorPROMazine 50 mg Tablet 200 MG PO (20:34)
[2021-07-11] MEDS: diphenhydrAMINE 50 mg Capsule PO (20:35)
[2021-07-11] MEDS: LORazepam 2 mg Tablet 3 MG PO (20:35)
[2021-07-11] MEDS: carBAMazepine 200 mg Tablet 400 MG PO (20:36)
[2021-07-12] MEDS: nicotine 2 mg Gum BUCCAL ×7 (02:04→20:35)
[2021-07-12 05:51] VITALS: BP 131/86; PULSE 69; RESP 17; TEMP 36.7; O2SAT 99
[2021-07-12 06:31] VITALS: BP 103/63; PULSE 78; RESP 17; TEMP 36.8; O2SAT 99
[2021-07-12] MEDS: cloZAPine 25 mg Tablet 75 MG PO ×2 (08:11→20:37)
[2021-07-12] MEDS: buprenorphine-naloxone 4-1 mg Film 2 EACH SUBLINGUAL ×2 (08:11→20:34)
[2021-07-12] MEDS: carBAMazepine 200 mg Tablet 100 MG PO (08:11)
--- NOTE | 2021-07-12 13:09 | P.NPUPN_ITS ---
Subjective NPU Subjective: Patient is in today reporting that he is feeling a little better. We discussed the plan to change the clozapine to 50 mg in the morning and 100 mg at night instead to see if that does not help with sleep at night and daytime sleepiness. He reports he thinks his mom cannot visit him today and we agreed to talk tomorrow and reach out to her to see if he feels that he is getting closer to baseline and began discussing discharge planning. Mental Status Exam MSE Comments: This is a well-nourished well-developed white male in hospital scrubs with adequate grooming and eye contact.? Right eye has a whiteness noted where his eye should be and he has a prosthetic but he is not currently wearing.? No abnormal movements except for mild psychomotor retardation.?Cooperative with exam in no acute distress.? Speech was more normal rate and normal volume.? Mood described as all right, affect congruent but pensive.? Thought process more organized at times.? Thought content: Patient denied suicidal or homicidal ideation, he reported some paranoia and but did not appear guarded, he denied auditory or visual hallucinations but did report having some prior to admission.? Attention and concentration appeared intact and memory was mostly reliable but none were formally tested.? He is alert and orien suzanne x3.? Insight and judgment appear limited, impulse control is limited. Vitals/I&O/Wt Last Vital Signs Temp 98.2 F 07/12/21 06:31 Pulse 78 07/12/21 06:31 Resp 17 07/12/21 06:31 BP 103/63 07/12/21 06:31 Pulse Ox 99 07/12/21 06:31 Data NPU : 06/25/21 21:16 06/25/21 21:16 A&P Assessment and plan (1) Bipolar disorder with psychotic features: Status: Acute (2) Suicidal ideation: Status: Acute (3) Depression: Status: Acute (4) Acute psychosis: Status: Acute (5) Opioid dependence, uncomplicated: Status: Acute (6) Other stimulant dependence, uncomplicated: Status: Acute (7) On combination antipsychotic drug therapy: Status: Acute (8) Methamphetamine addiction: Status: Acute Plan This is a 31-year old single male with a history of bipolar disorder with recent noncompliance with medication, delusions and insomnia Plan: 1.? Continue current medication.? increased Tegretol to 500 mg daily.? Buprenorphine was restarted at his request.? Ativan 3 mg po, Thorazine 200 mg and Benedryl for sleep.? We will continue to systematically decrease the A tivan.? Change clozapine to 50 mg p.o. every morning and 100 mg p.o. nightly. 2.? Continue every 15 minute checks for safety. 3.? Encourage individual, group and milieu therapies. 4.? Encourage sober living treatment after discharge at the highest level of care to which he is willing to commit. 5.? Patient was placed on the 21-day hold. Involuntary Hold Information 96 Hour Hold: 96 Hour Involuntary Admission: Yes 96 Hour Hold Ending Date: 07/01/21 96 Hour Hold Ending Time: 21:01 Attestations NPU Medical Necessity Statement*: Inpatient hospitalization is medically necessary and the clinically appropriate intervention at this time.? We will initiate m edications and make changes as indicated.? Patient on 21-day hold and we will work for appropriate discharge plan as his symptoms improve. 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
[2021-07-12] MEDS: hyDROXYzine 25 mg Capsule 50 MG PO (13:45)
[2021-07-12 14:00] VITALS: BP 126/81; PULSE 83; RESP 20; TEMP 37; O2SAT 98
[2021-07-12] MEDS: diphenhydrAMINE 50 mg Capsule PO (20:35)
[2021-07-12] MEDS: chlorPROMazine 50 mg Tablet 200 MG PO (20:35)
[2021-07-12] MEDS: LORazepam 2 mg Tablet 3 MG PO (20:36)
[2021-07-12] MEDS: carBAMazepine 200 mg Tablet 400 MG PO (20:36)
[2021-07-12 20:37] VITALS: BP 146/97; PULSE 94; RESP 18; TEMP 36.9; O2SAT 98
[2021-07-13] MEDS: nicotine 2 mg Gum BUCCAL ×9 (03:40→20:55)
[2021-07-13 06:00] VITALS: BP 120/46; PULSE 91; RESP 12; TEMP 36.5; O2SAT 98
--- NOTE | 2021-07-13 07:42 | P.NPUPN_ITS ---
Subjective NPU Subjective: Patient presents today reporting that he is feeling okay. No additional episodes of wall graffiti. He is finally starting to look towards discharge. Had a chance to talk to his mother and his mother was feeling like he was taking steps in the right direction. We discussed the possibility of discharge this week though he had initially interpreted as he was being discharged today. He was somewhat upset with his mom's not going to take him home. He had received a switch to 50 mg of Clozaril in the morning with a plan to have larger percentage of the dose at night. Mental Status Exam MSE Comments: This is a well-nourished well-developed white male in hospital scrubs with adequate grooming and eye contact.? Right eye has a whiteness noted where his eye should be and he has a prosthetic but he is not currently wearing.? No abnormal movements except for mild psychomotor retardation.?Coop erative with exam in no acute distress.? Speech was more normal rate and normal volume.? Mood described as a little better, affect congruent but pensive.? Thought process more organized at times.? Thought content: Patient denied suicidal or homicidal ideation, he reported some paranoia and but did not appear guarded, he denied auditory or visual hallucinations but did report having some prior to admission.? Attention and concentration appeared intact and memory was mostly reliable but none were formally tested.? He is alert and oriented x3.? Insight and judgment appear limited, impulse control is limited. Vitals/I&O/Wt Last Vital Signs Temp 97.7 F 07/13/21 06:00 Pulse 91 07/13/21 06:00 Resp 12 07/13/21 06:00 BP 120/46 07/13/21 06:00 Pulse Ox 98 07/13/21 06:00 Data NPU : 06/25/21 21:16 06/25/21 21:16 A&P Assessment and plan (1) Bipolar disorder with psychotic features: Status: Acute (2) Suicidal ideation: Status: Acute (3) Depression: Status: Acute (4) Acute psychosis: Status: Acute (5) Opioid dependence, uncomplicated: Status: Acute (6) Other stimulant dependence, uncomplicated: Status: Acute (7) On combination antipsychotic drug therapy: Status: Acute (8) Methamphetamine addiction: Status: Acute Plan This is a 31-year old single male with a history of bipolar disorder with recent noncompliance with medication, delusions and insomnia Plan: 1.? Continue current medication.? increased Tegretol to 500 mg daily.? Buprenorphine was restarted at his request.? Decrease Ativan to 2 mg po, Thorazine 200 mg and Benedryl for sleep.? We will continue to systematically decrease the Ativan.? Change clozapine to 50 mg p.o. every morning and 100 mg p.o. nightly. 2.? Continue every 15 minute checks for safety. 3.? Encourage individual, group and milieu therapies. 4.? Encourage sober living treatment after discharge at the highest level of care to which he is willing to commit. 5.? Patient was placed on the 21-day hold. Involuntary Hold Information 96 Hour Hold: 96 Hour Involuntary Admission: Yes 96 Hour Hold Ending Date: 07/01/21 96 Hour Hold Ending Time: 21:01 Attestations NPU Medical Necessity Statement*: Inpatient hospitalization is medically necessary and the clinically appropriate intervention at this time.? We will initiate medications and make changes as indicated.? Patient on 21-day hold and we will work for appropriate discharge plan as his symptoms improve. 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
[2021-07-13] MEDS: carBAMazepine 200 mg Tablet 100 MG PO (08:33)
[2021-07-13] MEDS: buprenorphine-naloxone 4-1 mg Film 2 EACH SUBLINGUAL ×2 (08:34→20:54)
[2021-07-13 14:00] VITALS: BP 112/76; PULSE 76; RESP 20; TEMP 37.1; O2SAT 99
[2021-07-13] MEDS: acetaminophen 325 mg Tablet 650 MG PO (15:16)
[2021-07-13 20:49] VITALS: BP 125/82; PULSE 78; RESP 17; TEMP 36.8; O2SAT 98
[2021-07-13] MEDS: cloZAPine 100 mg Tablet PO (20:54)
[2021-07-13] MEDS: diphenhydrAMINE 50 mg Capsule PO (20:54)
[2021-07-13] MEDS: LORazepam 2 mg Tablet PO (20:54)
[2021-07-13] MEDS: chlorPROMazine 50 mg Tablet 200 MG PO (20:55)
[2021-07-13] MEDS: carBAMazepine 200 mg Tablet 400 MG PO (20:55)
[2021-07-14] MEDS: nicotine 2 mg Gum BUCCAL ×6 (03:20→20:43)
[2021-07-14] MEDS: hyDROXYzine 25 mg Capsule 50 MG PO (04:59)
[2021-07-14 06:00] VITALS: BP 119/81; PULSE 90; RESP 18; TEMP 36.7; O2SAT 96
[2021-07-14] MEDS: carBAMazepine 200 mg Tablet 100 MG PO (08:11)
[2021-07-14] MEDS: cloZAPine 25 mg Tablet 50 MG PO (08:11)
[2021-07-14] MEDS: buprenorphine-naloxone 4-1 mg Film 2 EACH SUBLINGUAL ×2 (08:11→20:42)
[2021-07-14] MEDS: OLANZapine 5 mg ODT PO (13:00)
[2021-07-14 14:00] VITALS: BP 138/75; PULSE 88; RESP 18; TEMP 36.6; O2SAT 98
[2021-07-14] MEDS: nicotine 21 mg Patch 1 PATCH TRANSDERMA (16:06)
--- NOTE | 2021-07-14 18:36 | P.NPUPN_ITS ---
Subjective NPU Subjective: Patient is in today reporting is feeling a little better. He did talk to his mother and she was more open to the idea of him coming home. We agreed to reach out to her and determine a discharge date this week which made him very happy. He reports that he is not having any challenges that his mind is quieter. Mental Status Exam MSE Comments: This is a well-nourished well-developed white male in hospital scrubs with adequate grooming and eye contact.? Right eye has a whiteness noted where his eye should be and he has a prosthetic but he is not currently wearing.? No abnormal movements except for mild psychomotor retardation.?Cooperative with exam in no acute distress.? Speech was more normal rate and normal volume.? Mood described as better, affect congruent but pensive.? Thought process more organized at times.? Thought content: Patient denied suicidal or homicidal ideation, he denied any paranoia and did not appear guarded, he denied auditory or visual hallucinations but did report having some prior to admission.? Attention and concentration appeared intact and memory was mostly reliable but none were formally tested.? He is alert and oriented x3.? Insight and judgment appear limited, impulse control is limited. Vitals/I&O/Wt Last Vital Signs Temp 97.9 F 07/14/21 21:26 Pulse 80 07/14/21 21:26 Resp 17 07/14/21 21:26 BP 119/75 07/14/21 21:26 Pulse Ox 98 07/14/21 21:26 Data NPU : 06/25/21 21:16 06/25/21 21:16 A&P Assessment and plan (1) Bipolar disorder with psychotic features: Status: Acute (2) Suicidal ideation: Status: Acute (3) Depression: Status: Acute (4) Acute psychosis: Status: Acute (5) Opioid dependence, uncomplicated: Status: Acute (6) Other stimulant dependence, uncomplicated: Status: Acute (7) On combination antipsychotic drug therapy: Status: Acute (8) Methamphetamine addiction: Status: Acute Plan This is a 31-year old single male with a history of bipolar disorder with recent noncompliance with medication, delusions and insomnia Plan: 1.? Continue current medication.? increased Tegretol to 500 mg daily.? Buprenorphine was restarted at his request.? Decrease Ativan to 2 mg po, Thorazine 200 mg and Benedryl for sleep.? We will continue to systematically decrease the Ativan.? Change clozapine to 50 mg p.o. every morning and 100 mg p.o. nightly. 2.? Continue every 15 minute checks for safety. 3.? Encourage individual, group and milieu therapies. 4.? Encourage sober living treatment after discharge at the highest level of care to which he is willing to commit. 5.? Patient was placed on the 21-day hold. Likely discharge in next 48 hours. Involuntary Hold Information 96 Hour Hold: 96 Hour Involuntary Admission: Yes 96 Hour Hold Ending Date: 07/01/21 96 Hour Hold Ending Time: 21:01 Attestations NPU Medical Necessity Statement*: Inpatient hospitalization is medically necessary and the clinically appropriate intervention at this time.? We will initiate medications and make changes as indicated.? Patient on 21-day hold and we will work for appropriate discharge plan as his symptoms improve. 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
[2021-07-14] MEDS: chlorPROMazine 50 mg Tablet 200 MG PO (20:42)
[2021-07-14] MEDS: carBAMazepine 200 mg Tablet 400 MG PO (20:43)
[2021-07-14] MEDS: diphenhydrAMINE 50 mg Capsule PO (20:43)
[2021-07-14] MEDS: LORazepam 2 mg Tablet PO (20:44)
[2021-07-14] MEDS: cloZAPine 100 mg Tablet PO (20:44)
[2021-07-14 21:26] VITALS: BP 119/75; PULSE 80; RESP 17; TEMP 36.6; O2SAT 98
[2021-07-15] MEDS: nicotine 2 mg Gum BUCCAL ×7 (04:46→19:52)
--- NOTE | 2021-07-15 04:46 | PC.NURSE ---
AT START OF SHIFT PT UP IN DAYROOM SOCIALIZING WITH OTHERS. GOOD INTERACTION NOTED. DENIED SI/HI AND AVH. PT RESTED IN BED WITH EYES CLOSED UNTIL APPROXIMATELY 0430. AT THIS TIME PT HAS TALKED WITH OTHER THAT WERE UP IN DAYROOM, ATE A SNACK AND IS RETURNING TO BED AT THIS TIME.
[2021-07-15] MEDS: cloZAPine 25 mg Tablet 50 MG PO (05:41)
[2021-07-15 06:00] VITALS: BP 113/73; PULSE 73; RESP 18; TEMP 36.6; O2SAT 98
[2021-07-15] MEDS: carBAMazepine 200 mg Tablet 100 MG PO (08:02)
[2021-07-15] MEDS: buprenorphine-naloxone 4-1 mg Film 2 EACH SUBLINGUAL ×2 (08:02→20:56)
[2021-07-15 14:00] VITALS: BP 135/89; PULSE 96; RESP 18; TEMP 37.2; O2SAT 98
[2021-07-15] MEDS: OLANZapine 5 mg ODT PO (15:29)
--- NOTE | 2021-07-15 17:26 | P.NPUPN_ITS ---
Subjective NPU Subjective: Patient presents today reporting being happy about discharge tomorrow. He reports that he feels considerably better and like he is going to be successful at his mom's house. We discussed the time and arrangement that his mother made for his pickup which they are fine with. He denies any concerns or problems at this time. Mental Status Exam MSE Comments: This is a well-nourished well-developed white male in hospital scrubs with adequate grooming and eye contact.? Right eye has a whiteness noted where his eye should be and he has a prosthetic but he is not currently wearing.? No abnormal movements except for mild psychomotor retardation.?Cooperative with exam in no acute distress.? Speech was more normal rate and normal volume.? Mood described as pretty good, affect congruent.? Thought process more organized at times.? Thought content: Patient denied suicidal or homicidal ideation, he denied any paranoia and did not appear guarded, he denied auditory or visual hallucinations but did report having some prior to admission.? Attention and concentration appeared intact and memory was mostly reliable but none were formally tested.? He is alert and oriented x3.? Insight and judgment appear limited, impulse control is improving. Vitals/I&O/Wt Last Vital Signs Temp 99.0 F 07/15/21 14:00 Pulse 96 07/15/21 14:00 Resp 18 07/15/21 14:00 BP 135/89 07/15/21 14:00 Pulse Ox 98 07/15/21 14:00 Data NPU : 06/25/21 21:16 06/25/21 21:16 A&P Assessment and plan (1) Bipolar disorder with psychotic features: Status: Acute (2) Suicidal ideation: Status: Acute (3) Depression: Status: Acute (4) Acute psychosis: Status: Acute (5) Opioid dependence, uncomplicated: Status: Acute (6) Other stimulant dependence, uncomplicated: Status: Acute (7) On combination antipsychotic drug therapy: Status: Acute (8) Methamphetamine addiction: Status: Acute Plan This is a 31-year old single male with a history of bipolar disorder with recent noncompliance with medication, delusions and insomnia Plan: 1.? Continue current medication.? increased Tegretol to 500 mg daily.? Buprenorphine was restarted at his request.? Decrease Ativan to 2 mg po, Thorazine 200 mg and Benedryl for sleep.? We will continue to systematically decrease the Ativan.? Change clozapine to 50 mg p.o. every morning and 100 mg p.o. nightly. 2.? Continue every 15 minute checks for safety. 3.? Encourage individual, group and milieu therapies. 4.? Encourage sober living treatment after discharge at the highest level of care to which he is willing to commit. 5.? Patient was placed on the 21-day hold.? Plan for discharge tomorrow. Involuntary Hold Information 96 Hour Hold: 96 Hour Involuntary Admission: Yes 96 Hour Hold Ending Date: 07/01/21 96 Hour Hold Ending Time: 21:01 Attestations NPU Medical Necessity Statement*: Inpatient hospitalization is medically necessary and the clinically appropriate intervention at this time.? We will initiate medications and make changes as indicated.? Patient on 21-day hold and we will work for appropriate discharge plan as his symptoms improve. Tentative plan for discharge tomorrow. 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
[2021-07-15] MEDS: carBAMazepine 200 mg Tablet 400 MG PO (20:54)
[2021-07-15] MEDS: chlorPROMazine 50 mg Tablet 200 MG PO (20:55)
[2021-07-15] MEDS: cloZAPine 100 mg Tablet PO (20:55)
[2021-07-15] MEDS: LORazepam 2 mg Tablet PO (20:56)
[2021-07-15] MEDS: diphenhydrAMINE 50 mg Capsule PO (20:56)
[2021-07-15 21:25] VITALS: BP 136/84; PULSE 76; RESP 16; TEMP 36.7; O2SAT 99
[2021-07-16] MEDS: nicotine 2 mg Gum BUCCAL ×3 (03:26→08:49)
[2021-07-16] MEDS: cloZAPine 25 mg Tablet 50 MG PO (05:06)
[2021-07-16 05:37] VITALS: BP 119/84; PULSE 98; RESP 16; TEMP 36.5; O2SAT 99
--- NOTE | 2021-07-16 07:49 | P.NPUDS_ITS ---
Diagnoses at Discharge Discharge Diagnosis (1) Bipolar disorder with psychotic features: Status: Acute (2) Suicidal ideation: Status: Resolved (3) Depression: Status: Acute (4) Acute psychosis: Status: Acute (5) Opioid dependence, uncomplicated: Status: Acute (6) Other stimulant dependence, uncomplicated: Status: Acute (7) On combination antipsychotic drug therapy: Status: Acute (8) Methamphetamine addiction: Status: Acute Reason for Visit Reason for Visit: SI\PTSD\Rt Knee Pain Brief History: History of Present Illness Yeison Amaro is a 31 year old male who was admitted to our emergency department with the following report: PI: [31]yo patient w/ hx of depression BIBA for suicidal ideation and self harm. Patient reports that he has burned his arms in the last few weeks and attempt to self-harm.? It is, patient reports right leg pain is new x 1 week. On arrival, the patient is AAOx3 and cooperative with my evaluation. No focal complaints of chest pain, shortness of breath, palpitations, N/V, focal GI/ complaints. Currently denies HI. No complaints of hallucinations. He was admitted for definitive treatment of these issues.? He says that he was not comfortable at home.? His brother would come by frequently and it sounds like they would argue.? He says his brother would break stuff and he would break stuff.? He would like to live somewhere else.? He would like to live in a jail.? I asked him if he works.? He says that he thinks that he works.? He has been working on himself.? 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 He still has not applied for that job.? He said that he has difficulty talking to girls.? When I asked him if he was sleeping he said that I think I sleep .? He has not been very compliant with his medications.? He evidently picked up medications after his appointment 2 months ago but has not had refills.? He is on Clozaril 50 mg twice a day and Tegretol 200 mg at bedtime.? He was on 200 twice a day but evidently was not compliant with the morning dose.? He is also on Suboxone but says that he prefers not to take that because he is not reliable about taking it and knows that it needs to be taken regularly.? We talked about bipolar disorder.? He says that that is a good enough diagnosis.? He says that he does have weeks at a time when he is up and weeks at a time when he is down.? He feels like he is too energized now.? When asked what would be the medicine medication to help him sleep he said a significant other would be the best.? He does have a girlfriend but does not sleep with her.? He said that Thorazine or Seroquel were the most helpful for his sleep and would like to take Thorazine at this time.? I suggested 100 mg and he said that would probably be good.? He has evidently had neuroleptic malignant syndrome from some medications in the past.? We will watch for that carefully and not overly use the antipsychotics.? At the end of the conversation I said that we would try to get him sleeping well and he said that would be good because he did not want to hurt anybody.? I asked how he might hurt someone and he said by being too close to them.? I ask if he was talking about emotional hurt and he said no I could burn them because sometimes I think I am radioactive. Below is the most recent note from his psychiatrist, April 21, 2021 Diagnosis (1) Bipolar disorder, current episode mixed, severe, without psychotic features: ?Status:?Acute (2) Nicotine dependence, cigarettes, uncomplicated: ?Status:?Acute (3) Other stimulant dependence, uncomplicated: ?Status:?Acute Psychiatry SOAP Note Time In: 11:08 Time Out: 11:25 Subjective Subjective: Yeison is a 31-year-old male, who presents to [facility] for medication management and follow up for his bipolar disorder, nicotine use disorder, stimulant use disorder in early remission, and opioid use disorder in early remission.? He was last seen February 26, 2021.? Yeison tells me he is doing better today.? States his brother moved out of the house 3 weeks ago to [place].? He states things are looking a lot more calm in the household.? He states is a lot less stressful.? Yeison states he has not used amphetamine in 3 weeks.? Indicates he was getting the amphetamine from his brother and he has not used since his brother has left.? Yeison describes his mood as up-and-down.? States he did not want to come to this visit today but he knew he needed to get his medicines.? States if he did not come here today he would most likely be watching [employer].? Yeison denies hearing any voices.? States his sleep has been okay but his sleep is better when he is on his medicine.? He states things are going better with his dad.? He indicates him and his dad live well together by sticking to a budget.? Yeison stated at his previous visit he had gotten a DWI.? He is unsure of the status of this ticket as he states he never got a court date and nothing is listed on case net.? He states he has reached out to his document review attorney but has not heard back from him. 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 Yeison would like to continue his medications the same today.? Yeison reports the following: Continue clozapine 50 mg twice per day Continue Tegretol 200 mg at bedtime Hospital Course Hospital Course He very slowly acclimated to the individual, group and milieu therapies provided. He was manic and very thought disordered upon admission. His Tegretol was increased to 100 mg in the morning and 400 mg at night and his clozapine was increased to 50 mg in the morning and 100 mg at night. As needed Ativan was started for at bedtime which was decreased throughout the stay and he was discharged on a taper for his nighttime Ativan. He had some significant episodes needing as needed medication during his stay and at one point had basically written all over the bhatia in his room. With the increase in Clozaril he showed improvement but has had a history of NMS that should be monitored. He did get on a 21-day hold and with improvement we were able to work with his mother for safe discharge. He was able to contract for safety outside the hospital prior to discharge. During the hospitalization, patient had routine laboratory studies which were within normal limits except for few outliers. Additionally there was a general medical evaluation which was also within normal limits and revealed no new acute processes. Discharge Summary: At the time of discharge, lethality was denied and psychosis was resolving. Mood and anxiety were well managed. Patient endorsed a plan to avoid all drugs of abuse and follow-up with the aftercare recommendations of the treatment team. Patient was evaluated and deemed to be absent credible lethality, and had achieved the maximum benefit from an inpatient hospitalization, so was discharged. Involuntary Hold Information 96 Hour Hold: 96 Hour Involuntary Admission: Yes 96 Hour Hold Ending Date: 07/01/21 96 Hour Hold Ending Time: 21:01 Mental Status Exam MSE Comments: This is a well-nourished well-developed white male in hospital scrubs with adequate grooming and eye contact.? Right eye has a whiteness noted where his eye should be and he has a prosthetic but he is not currently wearing.? No abnormal movements except for mild psychomotor retardation.?Cooperative with exam in no acute distress.? Speech was more normal rate and normal volume.? Mood described as pretty good, affect congruent.? Thought process more organized at times.? Thought content: Patient denied suicidal or homicidal ideation, he denied any paranoia and did not appear guarded, he denied auditory or visual hallucinations but did report having some prior to admission.? Attention and concentration appeared intact and memory was mostly reliable but none were formally tested.? He is alert and oriented x3.? Insight and judgment appear limited, impulse control is improving. Discharge Data Studies Completed and Pending: Completed Studies During Hospitalization Category Date Time Status XR ankle RT 2V 73 600 Urgent Exams 06/25/21 20:57 Completed XR foot RT 2V 736 20 Urgent Exams 06/25/21 20:57 Completed XR tibia fibula R T 2V 66227 Urgent Exams 06/25/21 20:57 Completed US venous duplex lower extremity RT [CV venous duplex Ultrasound 06/25/21 20:[place] [id number]] Urge nt Radiology Impressions Ankle X-Ray 06/25/21 20:57 IMPRESSION: No acute fracture or dislocation. Foot X-Ray 06/25/21 20:57 IMPRESSION: No acute fracture or dislocation. Tibia/Fibula X-Ray 06/25/21 20:57 IMPRESSION: No acute fracture or dislocation. Venous Duplex 06/25/21 20:57 IMPRESSION: No evidence of acute right lower extremity DVT. Laboratory Results WBC 11.5 10^3/uL (4.0 -10.0) H 06/25/21 21:16 RBC 4.38 10^6/uL (4.1 -5.3) 06/25/21 21:16 Hgb 14.0 g/dL (11.7-1 6.6) 06/25/21 21:16 Hct 42.9 % (42.0-52.0 ) 06/25/21 21:16 MCV 97.9 fl (80-94) H 06/25/21 21:16 MCH 32.0 pg (28.0-34. 0) 06/25/21 21:16 MCHC 32.6 g/dL (30.0-3 6.0) 06/25/21 21:16 RDW 14.1 % (12.1-15.1 ) 06/25/21 21:16 Plt Count 229 10^3/cmm (130 -400) 06/25/21 21:16 MPV 10.3 fL (7.4-10.4 ) 06/25/21 21:16 Neut % (Auto) 73.9 % 06/25/21 21:16 Lymph % (Auto) 18.8 % 06/25/21 21:16 [place] % (Auto) 6.3 % 06/25/21 21:16 Eos % (Auto) 0.3 % 06/25/21 21:16 Baso % (Auto) 0.4 % 06/25/21 21:16 Neut # (Auto) 8.46 10^3/uL (1.8 -7.7) H 06/25/21 21:16 Lymph # (Auto) 2.2 10^3/uL (0.8- 4.8) 06/25/21 21:16 [place] # (Auto) 0.7 10^3/uL (0.2- 0.9) 06/25/21 21:16 Eos # (Auto) 0.0 10^3/uL (0.0- 0.8) 06/25/21 21:16 Baso # (Auto) 0.1 10^3/uL (0.0- 0.1) 06/25/21 21:16 Nucleated RBC % (a uto) 0 % 06/25/21 21:16 Nucleated RBCs # 0.0 /100WBC 06/25/21 21:16 Sodium 137 mmol/L (136-1 45) 06/25/21 21:16 Potassium 4.4 mmol/L (3.5-5 .1) 06/25/21 21:16 Chloride 100 mmol/L (98-10 7) 06/25/21 21:16 Carbon Dioxide 24 mmol/L (22-29) 06/25/21 21:16 Anion Gap 17.4 (5-19) 06/25/21 21:16 BUN 19 mg/dL (6-20) 06/25/21 21:16 Creatinine 0.8 mg/dL (0.7-1. 2) 06/25/21 21:16 GFR Calculation 113.5 mL/min (90- 130) 06/25/21 21:16 Glucose 97 mg/dL (65-115) 06/25/21 21:16 Calculated Osmolal ity 286 mOsm/kg (285- 295) 06/25/21 21:16 Calcium 9.0 mg/dL (8.5-10 .5) 06/25/21 21:16 Total Bilirubin 0.2 mg/dL (0.15-1 .2) 06/25/21 21:16 AST 25 U/L (0-40) 06/25/21 21:16 ALT 26 U/L (0-41) 06/25/21 21:16 Alkaline Phosphata se 97 IU/L (40-130) 06/25/21 21:16 Total Protein 7.6 g/dL (6.6-8.7 ) 06/25/21 21:16 Albumin 4.4 g/dL (3.5-5.2 ) 06/25/21 21:16 Globulin 3.2 g/dL (1.3-4.6 ) 06/25/21 21:16 Lipase 23 U/L (13-60) 06/25/21 21:16 TSH 0.89 uIU/mL (0.27 -4.20) 06/25/21 21:16 Free T4 0.95 ng/dL (0.82- 1.77) 06/25/21 21:16 Salicylates < 0.3 mg/dL (3-10 ) L 06/25/21 21:16 Urine Opiates Scre en Negative ng/mL (N egative) 06/25/21 21:16 Acetaminophen < 5.0 ug/mL (10-3 0) L 06/25/21 21:16 Ur Barbiturates Sc reen Negative ng/mL (N egative) 06/25/21 21:16 Ur Phencyclidine S crn Negative ng/mL (N egative) 06/25/21 21:16 Ur Amphetamines Sc reen Negative ng/mL (N egative) 06/25/21 21:16 U Benzodiazepines Scrn Negative ng/mL (N egative) 06/25/21 21:16 Urine Cocaine Scre en Negative ng/mL (N egative) 06/25/21 21:16 U Marijuana (THC) Screen Negative ng/mL (N egative) 06/25/21 21:16 Coronavirus 229E ( PCR) Not detected (NO T DETECT) 06/25/21 21:51 SARS-CoV-2 (PCR) Not detected (NO T DETECT) 06/25/21 21:51 Vitals: Last Vital Signs Temp 97.7 F 07/16/21 05:37 Pulse 98 07/16/21 05:37 Resp 16 07/16/21 05:37 BP 119/84 07/16/21 05:37 Pulse Ox 99 07/16/21 05:37 Discharge Plan Discharge Patient Disposition: Home Condition: Stable Prescriptions: Changed buprenorphine-naloxone 8-2 mg tablet, sublingual 2 tab SUBLINGUAL BID Qty: 0 0RF Discontinued Tegretol 200 mg tablet 200 mg PO BEDTIME Qty: 30 1RF clozapine 25 mg tablet 50 mg PO BID@0900,2100 30 Days Qty: 60 1RF No Action carbamazepine 200 mg tablet 100 mg PO DAILY 30 Days Qty: 15 1RF clozapine 100 mg tablet 100 mg PO BEDTIME 30 Days Qty: 30 1RF clozapine 25 mg tablet 50 mg PO QAM 30 Days Qty: 60 1RF chlorpromazine 50 mg tablet 200 mg PO BEDTIME 30 Days Qty: 120 1RF Discharge Orders: Discharge Order (Routine); Ordered 07/16/21 Ordered By: Joshua Rutledge Other Ambulatory Orders: Complete Blood Count w/Auto (Routine) Timeframe: 1 Day Location: Determined by Patient Ordered By: Phillip Mckenzie [facility] - 07/29/21 11:20 am Maria T Allen PMHNP [Primary Care Provider] - 07/21/21 8:45 am (Follow up apt.) Discharge Diet: Regular Discharge Activity: Resume usual activity Patient Instructions: Bipolar Disorder (ED), Depression (ED), Suicide Prevention (ED), Opioid Safety Discharge Attestations NPU Time Spent in Discharge Care*: less than 30 min Specific Discharge Activities: Specific discharge activities: educating patient, discussing with returned case inspector/social workers/dc planners, documenting/other paperwork and evaluating patient/reviewing data Coding Level of Care Code Acute Chg FW DC note Diagnoses Bipolar disorder with psychotic features F31.9 Suicidal ideation R45.851 Depression F32.A Acute psychosis F23 Opioid dependence, uncomplicated F11.20 Other stimulant dependence, uncomplicated F15.20 On combination antipsychotic drug therapy Z79.899 Methamphetamine addiction F15.20
--- NOTE | 2021-07-16 08:40 | DCPLANNER ---
Imm copied and given to pt and rights explained.
[2021-07-16] MEDS: carBAMazepine 200 mg Tablet 100 MG PO (08:46)
[2021-07-16] MEDS: buprenorphine-naloxone 4-1 mg Film 2 EACH SUBLINGUAL (08:49)
[2021-07-16 11:20] VITALS: BP 119/84; PULSE 98; RESP 16; TEMP 36.5; O2SAT 99
== END 2021-07-16 11:55 | disposition home or self-care (01) | DRG 885 ==
LOC: ER 06-26 03:37 → NP 06-26 03:46
PROVIDERS: Emergency Medicine; Admitting Provider Psychiatry & Neurology Psychiatry; Emergency Provider Emergency Medicine; PCP Nurse Practitioner; Visit Provider Psychiatry & Neurology Psychiatry
DX: F31.63 Bipolar disorder, current episode mixed, severe, without psychotic features (principal); R45.851 Suicidal ideations; F11.20 Opioid dependence, uncomplicated; F15.20 Other stimulant dependence, uncomplicated; M79.661 Pain in right lower leg; F90.0 Attention-deficit hyperactivity disorder, predominantly inattentive type; F17.210 Nicotine dependence, cigarettes, uncomplicated; Z79.899 Other long term (current) drug therapy
CPT/HCPCS: 73590; 73600; 73620; 80053; 80306; 80307; 83690; 84439; 84443; 85025; 87635; 93005; 93971; 96372; 97150; 97165; 99285; J0573; J1200; J2060; J3490; Q0161; Q0162; Q0163

== ENCOUNTER → 2021-07-21 08:46 | Outpatient (BNVA) | payer MEDICARE, MEDICAID, SELFPAY | PROVIDERS: PCP Nurse Practitioner; Visit Provider Nurse Practitioner | DX: F31.9 Bipolar disorder, unspecified (principal); F25.9 Schizoaffective disorder, unspecified; F11.20 Opioid dependence, uncomplicated; F15.20 Other stimulant dependence, uncomplicated; Z79.899 Other long term (current) drug therapy; F17.210 Nicotine dependence, cigarettes, uncomplicated; F12.20 Cannabis dependence, uncomplicated | CPT/HCPCS: 85007; 85027; 99214 ==

== ENCOUNTER → 2021-08-25 14:41 | Outpatient (BNVA) | payer MEDICARE, MEDICAID, SELFPAY | PROVIDERS: PCP Nurse Practitioner; Visit Provider Nurse Practitioner | DX: F31.9 Bipolar disorder, unspecified (principal); F17.210 Nicotine dependence, cigarettes, uncomplicated; F11.21 Opioid dependence, in remission; F15.11 Other stimulant abuse, in remission; Z79.899 Other long term (current) drug therapy; F12.10 Cannabis abuse, uncomplicated | CPT/HCPCS: 85007; 85027; 99214 ==